=== PATIENT | male | born 1945 | race Caucasian/White ===

== ENCOUNTER 2024-03-14 13:47 | Outpatient (CLI) | payer OTHER, SELFPAY ==
--- NOTE | ~2024-03-14 | XR_ITS ---
EXAMINATION: XR lg joint inject/asp w image DATE: 03/14/2024 14:56 INDICATION: Left hip arthritis TECHNIQUE: A time-out was performed to verify the patient's name, date of , and procedure to b e performed. The procedure including the risks, benefits, and alternatives was discussed with the pat ient. Risks discussed included bleeding and infection. The patient understood the risks and agreed to proceed. The skin overlying the left hip joint was prepped and draped in usual sterile fashion. An esthetic was administered with 1% lidocaine subcutaneously. A 22 G needle was advanced under fluoros copic guidance into the joint. Injection of 1 mL of Omnipaque 240 confirmed intra-articular position of the needle. Subsequently, injectate consisting of 2 mL of a 2:1 mixture of 0.5% Marcaine: 80 mg/ mL Depo-Medrol for a total dose of 80 mg Depo-Medrol was instilled. Washout of contrast was seen conf irming intra-articular administration. The needle was removed and the entry site was cleaned and dres sed. There were no immediate complications. Fluoroscopy exposure time was 0.1 minutes. The total num raj of images was 2. Total DAP was 0.83 Gycm^2. FINDINGS: Real-time fluoroscopy demonstrates the needle in the left hip joint. IMPRESSION: 1. Successful left hip joint injection of local anesthetic and steroid. Reviewed, dictated and finalized at location A.
== END 2024-03-14 13:48 | disposition home or self-care (01) ==
LOC: ANHIMG 13:49
PROVIDERS: PCP Internal Medicine; Visit Provider Orthopaedic Surgery
DX: M16.12 Unilateral primary osteoarthritis, left hip (principal)
CPT/HCPCS: 20610; 77002; J1010

== ENCOUNTER 2024-04-25 14:00 | Outpatient (RCR) | payer OTHER, SELFPAY ==
--- NOTE | 2024-03-21 15:12 | PTOPEVAL1 ---
Assessment and note entered by Sebastian Orozco Evaluation Information Assessment Status Evaluation Diagnosis left hip pain, OA left hip Onset 01/01/24 Subjective Information Pt. reports that he began noticing hip pain in December. He states that pain was worsening initially, but he underwent an injection in the hip one week ago, that has helped to reduce his pain. He reports that pain is located in the area of the left groin. He reports that his activity level has been low due to pain and high temperatures. He states that initially he was having difficulty with getting up and down steps, but states that he has not had pain since the injection. He reports that he is very active with fishing, but states that he has not tried to fish trying to avoid increasing his hip pain. He reports that he has noticed some unsteadiness over the recent months, also making him reluctant to return to fishing. He recalls a couple episodes of falling over the past year. He reports that his goal for therapy is to improve his balance and improve his strength. Reported Pain Level Pain Score 1: Self Report Assessment PT Clinical Summary Pt. is a 78 year old male who enters the clinic due to left hip pain. He presents with impaired gait, impaired balance, impaired flexibility, impaired l.e. strength and pain on this date. Continued skilled PT is indicated in order to improve these areas to allow the pt. to be able to complete all IADL's with improved comfort and efficiency Plan of Care Interventions Electrical Stimulation,Gait Training,Hot Pack/Cold Pack,Manual Therapy,Neuro Re-education,Patient/ Caregiver Educati,Therapeutic Activities, Therapeutic Exercise PT Services Indicated Yes Treatment Frequency and 2x/week x 8 visits Duration These treatments will address the objective and functional deficits as defined above. The patient will be advanced safely and appropriately in order for the patient to progress towards his/her prior level of function. Additional exercises will be introduced and as well as a comprehensive home exercise program upon discharge, if needed, ?to ensure carryover of functional gains achieved in the clinic. This treatment plan has been reviewed and agreement upon by the patient.
--- NOTE | 2024-03-21 15:13 | OPREHPOC ---
Outpatient Therapy Plan of Care This is a Multidisciplinary Plan of Care that may contain components documented by all disciplines (PT, OT, and ST.) PT Problem 1 PT Problem #1 Knowledge Deficit PT Goal 1 Goal Pt. will be independent with a HEP addressing l.e. flexibility and strength Target Visit 2 PT Problem 2 PT Problem #2 Impaired Balance PT Goal 1 Goal Pt. will improve his Tinetti score to 27 or better indicating low to no fall risk Target Visit 8 PT Problem 3 PT Problem #3 Impaired Strength PT Goal 1 Goal Pt. will present with 4+/5 left hip abduction strength to improve gait mechanics Target Visit 8 PT Problem 4 PT Problem #4 Impaired Functional Mobil PT Goal 1 Goal Pt. will present with less than 15% limitation on the LEFS indicating significant functional improvement.
--- NOTE | 2024-04-25 15:10 | PTOPDC ---
Assessment and note entered by Sebastian Orozco Evaluation Information Assessment Status Evaluation Diagnosis left hip pain, OA left hip Onset 01/01/24 Subjective Information Pt. reports that he began noticing hip pain in December. He states that pain was worsening initially, but he underwent an injection in the hip one week ago, that has helped to reduce his pain. He reports that pain is located in the area of the left groin. He reports that his activity level has been low due to pain and high temperatures. He states that initially he was having difficulty with getting up and down steps, but states that he has not had pain since the injection. He reports that he is very active with fishing, but states that he has not tried to fish trying to avoid increasing his hip pain. He reports that he has noticed some unsteadiness over the recent months, also making him reluctant to return to fishing. He recalls a couple episodes of falling over the past year. He reports that his goal for therapy is to improve his balance and improve his strength. Reported Pain Level Pain Score 1: Self Report Assessment PT Clinical Summary Pt. demonstrates improve gait mechanics, improved strength and improved balance. Despite these improvements pain continues to have pain and note regression in his perception, as noted by his LEFS score. At this time pt. is encouraged to follow up with his doctor and will be discharged from our care. Plan of Care PT Services Indicated No
== END 2024-05-31 09:57 | disposition home or self-care (01) ==
LOC: ANHPT 14:00
PROVIDERS: PCP Internal Medicine; Visit Provider Orthopaedic Surgery
DX: M16.12 Unilateral primary osteoarthritis, left hip (principal)
CPT/HCPCS: 97110; 97112; 97161; 97530

== ENCOUNTER 2024-05-20 14:29 | Outpatient (CLI) | payer OTHER, SELFPAY ==
--- NOTE | 2024-05-20 14:48 | ECG_ITS ---
Test Date: 2024-05-20 14:57:32 Measurements Intervals [place] Rate: 65 P: 45 NH: 162 QRS: 36 QRSD: 98 T: 60 QT: 375 QTc: 390 Interpretive Statements SINUS RHYTHM No previous ECG available for comparison Electronically Signed On 05-21-2024 10:14:54 CDT by Wolf Jean M.D.
[2024-05-20 14:56] LABS: Add Urine Microscopic? NO; Appearance Urine Clear (Clear); Bilirubin Urine Negative (Negative); Blood Urine Negative (Negative); Color Urine Yellow (Yellow); Glucose Urine UA Negative (Negative); Ketones Urine Negative (Negative); Leukocyte Esterase Ur Negative LEU/UL (Negative); Nitrate Urine Negative (Negative); Protein Urine Negative (Negative); Specific Grav Ur 1.012 (1.001-1.035); Urobilinogen Urine 0.2 mg/dL (<2.0); pH Urine 5.5 (5.0-9.0)
[2024-05-20 15:12] LABS: Basophils Absolute Auto 0.1 K/mm3 (0.0-0.1); Basophils Percent Auto 0.7 % (0.2-1.2); Eosinophils Absolute Auto 0.1 K/mm3 (0-0.3); Eosinophils Percent Auto 0.6 % (0-4.4); Hematocrit 44.3 % (42.0-52.0); Hemoglobin 14.8 g/dL (14.0-18.0); Immature Granulocyte Absolute 0.03 K/mm3 (0.00-0.031); Immature Granulocyte Percent A 0.3 % (0-0.5); Lymphocytes Absolute Auto 1.61 K/mm3 (0.9-3.2); Lymphocytes Percent Auto 18.3 % (18.3-44.2); Mean Corpuscular HGB Conc 33.4 g/dl (32-36); Mean Corpuscular Volume 92.7 fl (80-100); Mean Platelet Volume 10.2 fl (7.4-10.4); Monocytes Absolute Auto 0.7 K/mm3 (0.1-0.6); Monocytes Percent Auto 7.5 % (2.6-8.5); Neutrophils Absolute Auto 6.4 K/mm3 (1.3-6.7); Neutrophils Percent Auto 72.6 % (45.5-73.1); Platelet Count Result 293 k/mm3 (150-375); Red Blood Count 4.78 M/mm3 (4.6-6.20); Red Cell Distribution Width 13.2 % (11.5-14.5); White Blood Count 8.8 K/mm3 (4.5-10.0)
[2024-05-20 15:27] LABS: Anion Gap 9 mmol/L (4-12); Blood Urea Nitrogen 13 mg/dL (9-20); Calcium 9.4 mg/dL (8.4-10.2); Carbon Dioxide 30 mmol/L (22-30); Chloride 96 mmol/L (98-107); Estimated Glomerular Filt Rate > 60; Glucose 98 mg/dL (65-110); Potassium 4.2 mmol/L (3.4-5.0); Sodium 135 mmol/L (137-145)
== END 2024-05-20 14:30 | disposition home or self-care (01) ==
LOC: ANHLAB 14:33
PROVIDERS: PCP Internal Medicine; Visit Provider Orthopaedic Surgery
DX: I73.9 Peripheral vascular disease, unspecified (principal); I70.90 Unspecified atherosclerosis; I10 Essential (primary) hypertension; R53.83 Other fatigue
CPT/HCPCS: 36415; 80048; 81003; 85025; 93005

== ENCOUNTER 2024-06-21 13:43 | Outpatient (CLI) | payer OTHER, SELFPAY ==
--- NOTE | ~2024-06-21 | XR_ITS ---
EXAMINATION: XR lg joint inject/asp w image DATE: 06/21/2024 14:25 INDICATION: Left hip arthritis. TECHNIQUE: A time-out was performed to verify the patient's name, date of , and procedure to b e performed. The procedure including the risks, benefits, and alternatives was discussed with the pat ient. Risks discussed included bleeding and infection. The patient understood the risks and agreed to proceed. The skin overlying the left hip joint was prepped and draped in usual sterile fashion. An esthetic was administered with 1% lidocaine subcutaneously. A 22 G needle was advanced under fluoros copic guidance into the joint. Subsequently, injectate consisting of 2 mL 0.5% bupivacaine and 1 mL 80 mg/mL Depo-Medrol was instilled. The needle was removed and the entry site was cleaned and dress ed. There were no immediate complications. Fluoroscopy exposure time was 0.1 minutes. The total numb er of images was 1. FINDINGS: Real-time fluoroscopy demonstrates the needle in the left hip joint. Patient's pain prior t o procedure:1/10. Patient's pain following the procedure: 0/10. IMPRESSION: 1. Fluoroscopy guided left hip joint injection of local anesthetic and steroid with decrease in the p atient's presenting pain. Reviewed, dictated and finalized at location A. IMPRESSION: 1. Fluoroscopy guided left hip joint injection of local anesthetic and steroid with decrease in the patient's presenting pain.
== END 2024-06-21 13:44 | disposition home or self-care (01) ==
LOC: ANHIMG 13:44
PROVIDERS: PCP Internal Medicine; Visit Provider Orthopaedic Surgery
DX: M16.12 Unilateral primary osteoarthritis, left hip (principal)
CPT/HCPCS: 20610; 77002; J1010

== ENCOUNTER 2024-07-29 09:47 | Outpatient (CLI) | payer OTHER, SELFPAY ==
--- NOTE | ~2024-07-29 | US_ITS ---
EXAMINATION: US art doppler ha JONES DATE: 07/29/2024 11:30 INDICATION: Peripheral vascular disease TECHNIQUE: Segmental pressures and plethysmographic and Doppler waveforms of the brachial and lower e xtremity arteries were obtained. COMPARISON: None. FINDINGS: Right and left brachial artery pressures of 136 mm Hg and 139 mm Hg, respectively, are concordant (no rmal difference <= 30 mmHg). The right and left high-thigh pressure indices are 1.13 and 0.99, respec tively (normal > 1.2). The right ankle-brachial index (YARIEL) is unable to be obtained due to inability to occlude either the dorsalis pedis or posterior tibial artery at the right ankle (normal >= 0.9-1). The right great toe-b rachial index (TBI) is 0.53 (normal >= 0.6-0.8). The right lower extremity segmental pressure gradien ts are normal above the ankle (normal gradients <= 20-30 mmHg between adjacent levels on the same leg or the same levels on the two legs). Arterial waveforms are biphasic at the right common femoral, chavarria perficial femoral, popliteal and posterior tibial arteries and monophasic at the right dorsalis pedis artery, all with brisk systolic upstrokes. The left YARIEL is 0.96. The left TBI is 0.44. The left lower extremity segmental pressure gradients are significantly increased between the left [id number] popliteal artery and the left dorsalis pedis artery. Arterial waveforms are biphasic with brisk systolic upstrokes at the left common femoral, chavarria perficial femoral and popliteal arteries and monophasic with brisk systolic upstrokes at the left pos terior tibial and dorsalis pedis arteries. IMPRESSION: 1. Mild bilateral lower limb arterial occlusive disease with mildly decreased bilateral high thigh pr essure indices, bilateral TBIs and mildly decreased left TBI. Right TBI is unable to be obtained due to inability to occlude the vessels at the right ankle. Reviewed, dictated and finalized at location A. IMPRESSION: 1. Mild bilateral lower limb arterial occlusive disease with mildly decreased b ilateral high thigh pressure indices, bilateral TBIs and mildly decreased left TBI. Right TBI is unable to be obtained due to inability to occlude the vessels at the right ankle.
== END 2024-07-29 09:48 | disposition home or self-care (01) ==
LOC: ANHIMG 09:49
PROVIDERS: PCP Internal Medicine; Visit Provider Orthopaedic Surgery
DX: I73.9 Peripheral vascular disease, unspecified (principal)
CPT/HCPCS: 93923

== ENCOUNTER 2024-08-28 00:53 | Emergency (ER) | payer OTHER, SELFPAY ==
--- NOTE | ~2024-08-28 | CT_ITS ---
EXAMINATION: CT chest abdomen pelvis wo con DATE: 08/28/2024 02:40 INDICATION: Right chest and flank trauma. TECHNIQUE: Computed tomography (CT) of the chest, abdomen, and pelvis was performed without intraveno us contrast. Automated exposure control and iterative reconstruction technique were employed. The dos e-length product was 417.96 mGy-cm. COMPARISON: None FINDINGS: CHEST CT: There is mild atelectasis in the lungs bilaterally. Calcified right lung nodules and calcified right hilar lymph nodes are consistent with old granulomatous disease. No pleural effusion. The heart size is normal. There are coronary artery calcifications. No pericardial effusion. There are fractures of the right eighth-11th ribs. There is severe cervical spondylosis and mild thoracic spondylosis. ABDOMEN/PELVIS CT: The liver is normal. There are gallstones in the gallbladder, which is normal in size. Calcifications in the spleen are consistent with old granulomatous disease. The pancreas, adrenal glands, and left kidney are normal. There is a 2 mm stone in right kidney. There are no dilated loops of bowel. The ap pendix is normal. There are no pathologically enlarged lymph nodes. There is no free intraperitoneal fluid. There are fractures of the right L1, L2, and L3 transverse processes. There is a hemangioma in L1 vertebral body. There is moderate lumbar spondylosis. IMPRESSION: 1. Fractures of the right eighth-11th ribs. I discussed this result with Dr. Dhillon. 2. Fractures of the right L1-L3 transverse processes. Reviewed, dictated and finalized at location A. 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 Fractures of the right eighth-11th ribs. I discussed this result with Dr. Zayda bell. 2. Fractures of the right L1-L3 transverse processes.
[2024-08-28 00:56] VITALS: BP 142/81; PULSE 78; RESP 19; TEMP 36.5; O2SAT 100
[2024-08-28] MEDS: HYDROcodone/acetaminophen (*CRX) 5-325 MG TABLET 1 TAB PO ×2 (02:16→04:39)
--- NOTE | 2024-08-28 03:17 | ED_ITS ---
HPI - General Adult General Chief complaint: Back Pain/Injury Stated complaint: fell down bleachers and hurt back Time Seen by Provider: 08/28/24 01:47 History of Present Illness HPI narrative: Patient is a 79-year-old gentleman who presents emergency department with chief complaint of right flank and back pain. Patient reports that he was walking down some bleachers lost his balance and fell backward striking his right flank and right lower chest on the bleachers. The patient reports that he has pain with movement pain with deep inspiration. The patient denies loss of consciousness denies being on blood thinners Related Data Home Medications Medication Instructions Recorded Confirmed atorvastatin 20 mg tablet 20 mg PO DAILY 03/08/24 05/20/24 finasteride PO 03/08/24 05/20/24 lisinopril PO 03/08/24 05/20/24 Allergies Allergy/AdvReac Type Severity Reaction Status Date / Time No Known Allergies Allergy Verified 08/28/24 00:53 Review of Systems Review of Systems: A 10 system review of systems was completed on the patient and is negative except for what is stated in the HPI. Nursing and ancillary documentation was reviewed. 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 HEAD: Normocephalic, atraumatic. EYES: PERRLA and EOMI. ENT: Nares clear, no rhinorrhea or epistaxis. Mucous membranes moist. NECK: Supple. CHEST: Clear to auscultation. No respiratory distress. Tenderness to palpation in the posterior chest on the right no crepitance no subcu emphysema HEART: Regular rate and rhythm. No murmur heard. Normal peripheral pulses. ABDOMEN: Soft, nontender, nondistended, normal active bowel sounds. Tenderness to palpation of the right flank EXTREMITIES: Normal range of motion. No edema. SKIN: Warm, dry, no rash. NEURO: No focal deficits. Alert and oriented x3. PSYCH: Normal mood and affect. Course Vital Signs Vital signs: Vital Signs Temperature 36.5 C 08/28/24 00:56 Pulse Rate 78 08/28/24 00:56 Respiratory Rate 19 08/28/24 00:56 Blood Pressure 142/81 H 08/28/24 00:56 Pulse Oximetry 100 08/28/24 00:56 Oxygen Delivery Room Air 08/28/24 00:56 Temperature 36.5 C 08/28/24 00:56 Pulse Rate 78 08/28/24 00:56 Respiratory Rate 19 08/28/24 00:56 Blood Pressure 142/81 H 08/28/24 00:56 Pulse Oximetry 100 08/28/24 00:56 Oxygen Delivery Room Air 08/28/24 00:56 Medical Decision Making MDM Narrative Medical decision making narrative: Differential diagnosis includes rib fractures, pneumothorax, pulmonary contusion, intra-abdominal injury, lumbar fracture Urinalysis showed no evidence of red blood cells in the urine CT scan of the chest abdomen pelvis showed transverse process fractures that are nondisplaced L1, L2 and L3 The patient is neurologically intact Vital Signs Vital Signs: Vital Signs Temperature 36.5 C 08/28/24 00:56 Pulse Rate 78 08/28/24 00:56 Respiratory Rate 19 08/28/24 00:56 Blood Pressure 142/81 H 08/28/24 00:56 Pulse Oximetry 100 08/28/24 00:56 Oxygen Delivery Room Air 08/28/24 00:56 Temperature 36.5 C 08/28/24 00:56 Pulse Rate 78 08/28/24 00:56 Respiratory Rate 19 08/28/24 00:56 Blood Pressure 142/81 H 08/28/24 00:56 Pulse Oximetry 100 08/28/24 00:56 Oxygen Delivery Room Air 08/28/24 00:56 Lab Data Labs: Lab Results 08/28/24 Range/Units 02:47 Urine Color Dark yellow (Yellow) Urine Appearance Clear (Clear) Urine pH 5.5 (5.0-9.0) Ur Specific [place] 1.022 (1.001-1.035) Urine Protein Negative (Negative) mg/dL Urine Glucose (UA) Negative (Negative) mg/dL Urine Ketones Trace H (Negative) mg/dL Ur Blood (Man) Negative (Negative) Urine Nitrate Negative (Negative) Urine Bilirubin Negative (Negative) Urine Urobilinogen 1.0 (<2.0) mg/dL Leukocyte Esterase Rfl Negative (Negative) ORION/UL Discharge Plan Discharge Clinical Impression: Fracture of multiple transverse processes Fracture of transverse process of lumbar vertebra Qualifiers: Encounter type: initial encounter Fracture type: closed Qualified Code(s): S32.009A - Unspecified fracture of unspecified lumbar vertebra, initial encounter for closed fracture Patient Disposition: Home, Self-Care Condition: Stable Instructions: Antibiotic Form, Transverse Process Fracture (ED) Prescriptions: New hydrocodone-acetaminophen 5-325 mg tablet 1 tablet PO Q6H PRN (Reason: pain) 3 Days Qty: 12 0RF ibuprofen 600 mg tablet 600 mg PO TID PRN (Reason: pain) Qty: 30 0RF No Action lisinopril PO atorvastatin 20 mg tablet 20 mg PO DAILY finasteride PO Follow-up/Referrals: Mariama Ellis MD [Physician] - [facility],Jesus Ruano MD [Primary Care Provider] - Time of Disposition: 04:24
[2024-08-28 03:19] LABS: Add Urine Microscopic? YES; Appearance Urine Clear (Clear); Bilirubin Urine Negative (Negative); Blood Urine Negative (Negative); Color Urine Dark Yellow (Yellow); Glucose Urine UA Negative (Negative); Ketones Urine Trace mg/dL (Negative); Leukocyte Esterase Ur Negative LEU/UL (Negative); Nitrate Urine Negative (Negative); Protein Urine Negative (Negative); Specific Grav Ur 1.022 (1.001-1.035); pH Urine 5.5 (5.0-9.0)
[2024-08-28] MEDS: IBUPROFEN 600 MG TABLET PO (04:39)
[2024-08-28 04:46] VITALS: BP 145/74; PULSE 66; RESP 18; O2SAT 99
== END 2024-08-28 04:47 | disposition home or self-care (01) ==
PROVIDERS: Emergency Provider Emergency Medicine; PCP Internal Medicine
DX: S32.018A Other fracture of first lumbar vertebra, initial encounter for closed fracture (principal); S32.028A Other fracture of second lumbar vertebra, initial encounter for closed fracture; S32.038A Other fracture of third lumbar vertebra, initial encounter for closed fracture; S22.41XA Multiple fractures of ribs, right side, initial encounter for closed fracture; W18.39XA Other fall on same level, initial encounter
CPT/HCPCS: 71250; 74176; 81001; 99284; A9270

== ENCOUNTER 2024-08-28 09:52 | Emergency (ER) | payer OTHER, SELFPAY ==
[2024-08-28 10:02] VITALS: BP 146/83; PULSE 92; RESP 16; TEMP 37; O2SAT 99
--- NOTE | 2024-08-28 10:29 | ED_ITS ---
HPI - Recheck/Abnormal Lab/Rx General Chief Complaint: Recheck/Abnormal Lab/Rx Stated Complaint: call back Time Seen by Provider: 08/28/24 10:29 Source: patient Mode of arrival: ambulatory Limitations: no limitations History of Present Illness [facility] narrative: This is a 79-year-old male who presents to the ED for chief complaint of right flank/rib pain and lower back pain after a fall it occurred yesterday evening. Patient was seen in our facility last night and was discharged after a negative read from the overnight radiology service. In-house radiologist read the scans and found multiple rib fractures and multiple transverse process fractures of the lumbar spine. Patient was called back into the ED for further evaluation. He states he still having pain on that right side but no respiratory complaints. Denies numbness, weakness, bowel or bladder dysfunction. Denies any further injury. He did not have a head injury or neck pain. Related Data Home Medications Medication Instructions Recorded Confirmed atorvastatin 20 mg tablet 20 mg PO DAILY 03/08/24 05/20/24 finasteride PO 03/08/24 05/20/24 lisinopril PO 03/08/24 05/20/24 Allergies Allergy/AdvReac Type Severity Reaction Status Date / Time No Known Allergies Allergy Verified 08/28/24 00:53 Review of Systems Review of Systems: All systems as dictated in [facility] Social History Social History Smoking status: Never smoker Alcohol intake: current Drinks per week: 5 Substance use type: does not use Living arrangements: alone Occupation/Education: retired 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 HEAD: Normocephalic, atraumatic. EYES: PERRLA and EOMI. ENT: Nares clear, no rhinorrhea or epistaxis. Mucous membranes moist. Oropharynx without tonsillar hypertrophy exudate or other lesions. NECK: Supple. No adenopathy or masses. CHEST: Right posterior rib tenderness. No respiratory distress. Clear to auscultation. No wheezes rales or rhonchi HEART: Regular rate and rhythm. No murmur heard. Normal peripheral pulses. ABDOMEN: Soft, nontender, nondistended, normal active bowel sounds. MSK: Normal range of motion. No edema. SKIN: Warm, dry, no rash. NEURO: Alert and oriented x4. No focal deficits. PSYCH: Normal mood and affect. Course Vital Signs Vital signs: Vital Signs Temperature 98.6 F 08/28/24 10:02 Pulse Rate 92 08/28/24 10:02 Respiratory Rate 16 08/28/24 10:02 Blood Pressure 146/83 H 08/28/24 10:02 Pulse Oximetry 99 08/28/24 10:02 Temperature 98.6 F 08/28/24 10:02 Pulse Rate 84 08/28/24 10:57 Respiratory Rate 17 08/28/24 11:13 Blood Pressure 139/92 H 08/28/24 10:57 Pulse Oximetry 97 08/28/24 10:57 MDM - Recheck/Abnormal Lab/Rx MDM Narrative Medical decision making narrative: This is a 79-year-old male who presents to the ED for chief complaint of right sided rib and flank pain after a fall last night. Vitals are normal.. Exam shows tenderness to the right posterior ribs and low back. No respiratory distr ess. No neurologic deficits. Lab work is unremarkable. CT chest abdomen pelvis: IMPRESSION: 1. Fractures of the right eighth-11th ribs. I discussed this result with Dr. Dhillon. 2. Fractures of the right L1-L3 transverse processes. Discussed the case with practice assistant transfer center who related to their ED, Dr. Casillas who will accept the patient for trauma. Patient is understanding and agreeable with the plan for transfer. He will be transferred in stable condition. Lab Data 08/28/24 11:11 08/28/24 11:11 Labs: Lab Results 08/28/24 Range/Units 11:11 WBC 9.1 (4.5-10.0) K/mm3 RBC 4.36 L (4.6-6.20) M/mm3 Hgb 13.4 L (14.0-18.0) g/dL Hct 39.8 L (42.0-52.0) % MCV 91.3 (80-100) fl MCH 30.7 (26-34) pg MCHC 33.7 (32-36) g/dl RDW 13.0 (11.5-14.5) % Plt Count 248 (150-375) k/mm3 MPV 10.0 (7.4-10.4) fl Immature Gran % (Auto) 0.4 (0-0.5) % Neut % (Auto) 68.5 (45.5-73.1) % Lymph % (Auto) 21.6 (18.3-44.2) % [place] % (Auto) 8.3 (2.6-8.5) % Eos % (Auto) 0.9 (0-4.4) % Baso % (Auto) 0.3 (0.2-1.2) % Lymph # (Auto) 1.97 (0.9-3.2) K/mm3 [place] # (Auto) 0.8 H (0.1-0.6) K/mm3 Eos # (Auto) 0.1 (0-0.3) K/mm3 Baso # (Auto) 0.0 (0.0-0.1) K/mm3 Abs Immat Gran (auto) 0.04 H (0.00-0.031) K/mm3 Absolute Neuts (auto) 6.3 (1.3-6.7) K/mm3 Absolute Nucleated RBC 0.000 (0.0-0.012) K/mm3 Nucleated RBC % 0.0 (0.0-0.2) % PT 15.0 H (11.1-14.7) Seconds INR 1.2 APTT 29.7 (22.3-36.8) Seconds Sodium 133 L (137-145) mmol/L Potassium 4.1 (3.4-5.0) mmol/L Chloride 100 (98-107) mmol/L Carbon Dioxide 30 (22-30) mmol/L Anion Gap 3 L (4-12) mmol/L BUN 23 H D (9-20) mg/dL Creatinine 1.10 (0.7-1.3) mg/dL Estim Creat Clear Calc 45 ml/min Estimated GFR > 60 (59 - ) Glucose 103 (65-110) mg/dL Calcium 8.5 (8.4-10.2) mg/dL Total Bilirubin 0.8 (0.2-1.3) mg/dL AST 27 (17-59) U/L ALT 40 (6-50) U/L Alkaline Phosphatase 105 (38-126) U/L Total Protein 6.0 L (6.3-8.2) g/dL Albumin 3.8 (3.5-5.1) g/dL Discharge Plan Discharge Clinical Impression: Fracture of multiple transverse processes, Multiple fractures of ribs Patient Disposition: Acute Care Hospital Condition: Stable Prescriptions: No Action hydrocodone-acetaminophen 5-325 mg tablet 1 tablet PO Q6H PRN (Reason: pain) 3 Days Qty: 12 0RF ibuprofen 600 mg tablet 600 mg PO TID PRN (Reason: pain) Qty: 30 0RF lisinopril PO atorvastatin 20 mg tablet 20 mg PO DAILY finasteride PO Follow-up/Referrals: Arun,Jesus Ruano MD [Primary Care Provider] -
[2024-08-28 10:57] VITALS: BP 139/92; PULSE 84; RESP 16; O2SAT 97
[2024-08-28 11:13] VITALS: RESP 17
[2024-08-28 11:24] LABS: Basophils Percent Auto 0.3 % (0.2-1.2); Eosinophils Absolute Auto 0.1 K/mm3 (0-0.3); Eosinophils Percent Auto 0.9 % (0-4.4); Hematocrit 39.8 % (42.0-52.0); Hemoglobin 13.4 g/dL (14.0-18.0); Immature Granulocyte Absolute 0.04 K/mm3 (0.00-0.031); Immature Granulocyte Percent A 0.4 % (0-0.5); Lymphocytes Absolute Auto 1.97 K/mm3 (0.9-3.2); Lymphocytes Percent Auto 21.6 % (18.3-44.2); Mean Corpuscular HGB Conc 33.7 g/dl (32-36); Mean Corpuscular Hemoglobin 30.7 pg (26-34); Mean Corpuscular Volume 91.3 fl (80-100); Monocytes Absolute Auto 0.8 K/mm3 (0.1-0.6); Monocytes Percent Auto 8.3 % (2.6-8.5); Neutrophils Absolute Auto 6.3 K/mm3 (1.3-6.7); Neutrophils Percent Auto 68.5 % (45.5-73.1); Platelet Count Result 248 k/mm3 (150-375); Red Blood Count 4.36 M/mm3 (4.6-6.20); White Blood Count 9.1 K/mm3 (4.5-10.0)
[2024-08-28 11:34] LABS: Alanine Aminotransferase 40 U/L (6-50); Albumin Level 3.8 g/dL (3.5-5.1); Alkaline Phosphatase 105 U/L (38-126); Anion Gap 3 mmol/L (4-12); Aspartate Amino Transferase 27 U/L (17-59); Bilirubin,Total 0.8 mg/dL (0.2-1.3); Blood Urea Nitrogen 23 mg/dL (9-20); Calcium 8.5 mg/dL (8.4-10.2); Carbon Dioxide 30 mmol/L (22-30); Chloride 100 mmol/L (98-107); Estimated CRCL calculation 45 ml/min; Estimated Glomerular Filt Rate > 60; Glucose 103 mg/dL (65-110); Potassium 4.1 mmol/L (3.4-5.0); Sodium 133 mmol/L (137-145)
[2024-08-28 11:35] LABS: INR 1.2
[2024-08-28 11:36] LABS: Partial Thromboplastin Time 29.7 Seconds (22.3-36.8)
== END 2024-08-28 11:47 | disposition short-term general hospital (02) ==
LOC: ANHED 10:48
PROVIDERS: Emergency Provider Physician Assistant; PCP Internal Medicine
DX: S22.41XA Multiple fractures of ribs, right side, initial encounter for closed fracture (principal); S32.018A Other fracture of first lumbar vertebra, initial encounter for closed fracture; S32.028A Other fracture of second lumbar vertebra, initial encounter for closed fracture; S32.038A Other fracture of third lumbar vertebra, initial encounter for closed fracture; W19.XXXA Unspecified fall, initial encounter
CPT/HCPCS: 36415; 80053; 85025; 85610; 85730; 99199

== ENCOUNTER 2024-10-23 14:00 | Outpatient (CLI) | payer OTHER, SELFPAY ==
--- NOTE | ~2024-10-23 | XR_ITS ---
EXAMINATION: XR lg joint inject/asp w image DATE: 10/23/2024 14:54 INDICATION: Left hip arthritis TECHNIQUE: A time-out was performed to verify the patient's name, date of , and procedure to b e performed. The procedure including the risks, benefits, and alternatives was discussed with the pat ient. Risks discussed included bleeding and infection. The patient understood the risks and agreed to proceed. The skin overlying the left hip joint was prepped and draped in usual sterile fashion. An esthetic was administered with 1% lidocaine subcutaneously. A 22 G needle was advanced under fluoros copic guidance into the joint. Injection of 1 mL of Omnipaque 240 confirmed intra-articular position of the needle. Subsequently, injectate consisting of 3 mL of a 2:1 mixture of 0.5% bupivacaine: 80 mg/mL Depo-Medrol for a total dosage of 80 mg Depo-Medrol was instilled. Washout of contrast was seen confirming intra-articular administration. The needle was removed and the entry site was cleaned and dressed. There were no immediate complications. Fluoroscopy exposure time was 0.1 minutes. The tota l number of images was 3. Total DAP was 0.6 Gycm^2. FINDINGS: Real-time fluoroscopy demonstrates the needle in the left hip joint. Patient's pain prior t o procedure:1/10. Patient's pain following the procedure: 0/10. IMPRESSION: 1. Successful left hip joint injection of local anesthetic and steroid with decrease in the patient's presenting pain. Reviewed, dictated and finalized at location A. GE MANAGER IMPRESSION: 1. Successful left hip joint injection of local anesthetic and steroid with dec rease in the patient's presenting pain.
--- OUTSIDE RECORDS SUMMARY | 2024-10-25 01:41 | XMS_ITS | Data Portability ---
Author Organization [facility], Main Office Address [address] [place] [address] Care Team Providers Care Drink Mixer Name Role Phone ZOYA BYRNES Primary Care Provider Assessment No assessment recorded. Plan of Treatment Reminders Order Date Submit Date Provider Last Modified By Organization Details Last Modified Time Details Appointments None record ed. Lab None record ed. Referral None record ed. Procedures None record ed. Surgeries None record ed. Imaging None record ed. Medication Orders None record ed. Patient TargetsNo targets recorded. Patient Instructions Encounter Date Encounter Id Patient Instructions Last Modified By Organization Details Last Modified Time 12/26/2022 [id number] this patient believes that he has mupirocin at home and will use it whenever necessary. [email or web address] Not available 12/26/2022 16:06:44 Reason for Referral None Reported. Problems Name Problem SNOMED Code Status Onset Date Resolution Date Notes Provider Name and Address Organization Details Recorded Time Folliculitis [id number] Active 023 Jama Wheeler MD [address] [facility], [place], [address] [place] [address] [employer] 16:06:32 Problem Notes None recorded. Medical Equipment None Reported. Allergies No known drug allergies Medications Name Sig Start Date Stop Date Status Note LastModified by Organization Details LastModified Time atorvastati n 20 mg tablet Take 1 tablet every day by oral route. active Not Available Not Available No t Available betamethaso ne dipropionat e 0.05 % topical cream APPLY TOPICALLY TWICE DAILY TO AFFECTED AREA DIRECTED active Not Available Not Available No t Available mupirocin 2 % topical ointment APPLY 1 APPLICATI ON BY TOPICAL ROUTE TWICE DAILY active Not Available Not Available No t Available lisinopril 10 mg-hydrochl orothiazide 12.5 mg tablet Take 1 tablet every day by oral route. active Not Available Not Available No t Available finasteride 5 mg tablet TAKE 1 TABLET BY MOUTH EVERY OTHER DAY active Not Available Not Available No t Available amoxicillin 875 mg-charisma m clavulanate 125 mg tablet TAKE 1 TABLET BY MOUTH EVERY 12 HOURS FOR 10 DAYS 12/26 completed Not Available Not Available Not Available finasteride active Not Available Not A vailable Not Available Vitamin D3 active Not Available Not Av ailable Not Available Jublia 10 % topical solution with applicator active Not Available Not Available N ot Available Vitals Date Recorded Body weight Body temperature Body mass index (BMI) Body height Provider Name and Address Organization Details Last Updated DateTime 12/26/2022 59636.99 g 97.4 [degF] 25.6 kg/m2 170.18 cm Dee Howard RN [facility] [employer] 12/26/2022 15:44:31 Social History Question Answer Notes LastModified by Organizat ion Details LastModified Time Tobacco Smoking Status Never Smoker Dee Howard RN null, [facility] [employer] 12/22/2022 15:37:02 What Is Your Level Of Alcohol Consumption? Occasional [email or web address] Information not available 12/22/2022 Sex: Unknown Functional Status None recorded. Mental Status None recorded. Family History Relationship Description Onset Age of this Age Resolved Age Notes LastModified by Organization Details LastModified Time Father No current problems or disability [email or web address] Not available 12/22 15:36:40 Mother No current problems or disability [email or web address] Not available 12/22 15:36:40 Medical History Condition Response MRSA N ALLERGIES/HAYFEVER N BACK INJECTIONS N LUNG DISEASE/DISORDER N ESRD N HISTORY OF DRUG ABUSE N INSOMNIA N RADIATION / CHEMOTHERAPY N COPD N HIGH CHOLESTEROL / HYPERLIPIDEMIA N HYPERTHYROIDISM N PVD N BLOOD DISEASES N EAR OR HEARING PROBLEMS N HYPOTHYROIDISM N SHINGLES N DEPRESSION (INCLUDING POST ) N BACK / NECK PROBLEMS N HAVE YOU BEEN HOSPITALIZED OR SEEN IN [facility] IN THE PAST YEAR ? N FAILED BACK SYNDROME N STROKE/TIA N POLYCYSTIC OVARIES N OBESITY N ANEURYSM N HISTORY WITH COMPLICATIONS WITH ANESTHES IA ? N Do you have Advance directive? N USE OF BLOOD THINNERS N NO SIGNIFICANT PAST MEDICAL HISTORY N DIABETES, TYPE N VON WILLIBRAND'S DISEASE N PARATHYROID DISEASE N ENT N SEASONAL ALLERGIES N HEARTBURN / REFLUX N POST LAMINECTOMY SYNDROME N HEPATITIS / LIVER DISEASE N SLEEP DISORDER N ARTERIAL INSUFFICIENCY N SEIZURES/EPILEPSY N HEADACHES/MIGRAINES N CHF N PACEMAKER N DIZZINESS N HEART DISEASE/HEART PROBLEMS N AIDS/HIV N NEUROPSYCHOLOGICAL N HYPERTENSION Y CANCER: SPECIFY N TOURETTE'S N BLOOD TRANSFUSION N ANESTHESIA COMPLICATIONS N ANEMIA/BLOOD DISORDER N CHRONIC EAR INFECTIONS N ATRIAL FIBRILLATION N AUTOIMMUNE DISEASE N TUBERCULOSIS N Past Encounters Encounter ID Performer Location Encounter Start Date Encounter Closed Date Diagnosis/Indication Diagnosis SNOMED-CT Code Diagnosis ICD10 Code Diagnosis Note [id number] Jama Wheeler MD [facility] [address] [place] [address] 12/26/2022 15:35:55 12/26/2022 16:08:14 Folliculitis 21861704 L73.9 Health Concerns Section Related Observation LastModified by Organization Detai ls LastModified Time None Recorded Concern Status LastModified by Organization Details LastModified Time None Recorded Advance Directives Directive None Recorded Payers Encounter Date Sequence Insurance Name Policy Number Policy Mendiola Covered Member ID Mendiola Member ID Guarantor Name 12/26/2022 1 [employer] OPEN [employer]ESS [id number] Nas Schroeder [id number] OI Nas Mockjuan a Notes Date Note Type Note Provider Name and Address Organization Details Recorded Time 12/26/2022 text/html this patient had a cold and a sinus infection and developed a left vestibular fissure. This was painful and he was seen in the emergency room was given an appointment and this did resolve. This likely was pierre Wheeler MD [address] [place] [address], [place], [address], [facility] [employer] 12/26/2022 16:07:04
--- OUTSIDE RECORDS SUMMARY | 2024-10-25 01:41 | XMS_ITS | Clinical Summary ---
Author Organization [facility] Address [address] [place] [address] Care Team Providers Care Developmental Psychologist Name Role Phone Jesus Dias MD Primary Care Provider [phone] Hailey ESTEVES MD, Cristiano Unavailable [phone] Source Comments [facility],non-owned Affiliates and Associated Physician Practices is amultiple site organization consisting of ambulatory clinics and hospital sitesin [place], [place], [place] and [place]. This disclosure is being madepursuant to the Care Everywhere program and may not contain all information available regarding this patient. Last updated 18.[facility] Allergies No known active allergies Medications * Be aware that medications may not be up to date on this document. Alwaysverify current medications with the patient. Medication Sig Dispensed Refills Start Date End Date Status finasteride (Proscar) 5 MG tablet Take 1 (one) tablet by mouth every 2 days Active atorvastatin (Lipitor) 20 MG tablet Take 1 (one) tablet by mouth once daily Active lisinopril-hydroCHLOR Othiazide (Prinzide; Zestoretic) 10-12.5 MG tablet Take 1 (one) tablet by mouth once daily Active fluticasone propionate (Flonase) 50 MCG/ACT nasal spray [facility] 2 (two) sprays into each nostril once daily 1 Each 08/29/2024 Active loratadine (Claritin) 10 MG tablet Take 1 (one) tablet by mouth once daily 30 tablet 08/29/2024 Active vitamin D3 (Cholecalciferol) 25 MCG (1000 UNITS) tablet Take 1 (one) tablet by mouth once daily 30 tablet 08/29/2024 Active oxyCODONE, immediate release, (Roxicodone) 5 MG tabletIndications:Fal l, initial encounter Take 0.5 (one-half) tablet by mouth every 6 hours as needed for Pain 10 tablet 08/29/2024 Active Active Problems Problem Noted Date Diagnosed Date Fx dorsal vertebra-closed 08/28/2024 Multiple closed fractures of ribs of right side 08/28/2024 Fall, initial encounter 08/28/2024 Other closed fracture of tho racic vertebra, unspecified thoracic vertebral level, initial encounter 08/28/2024 Calculus of gallbladder with out cholecystitis without obstruction 08/28/2024 Closed fracture of multiple ribs of right side, initial encounter 08/28/2024 Encounters Date Type Department Care Team Description 10/14/2024 2:29 PM ADVENTURE EDUCATION TEACHER - 10/14/2024 11:59 PM ADVENTURE EDUCATION TEACHER Hospital Encounter [facility] [address] [place] [address] Julia Amezquita PA-C Discharge Disposition: Home or Self Care 10/14/2024 2:00 PM ADVENTURE EDUCATION TEACHER Office Visit [facility] [address] [place] [phone] Julia Amezquita PA-C Closed fracture of transverse process of lumbar vertebra with routine healing, subsequent encounter (Primary Dx) 10/14/2024 Travel 10/03/2024 Orders Only [facility] [address] [place] [phone] Jluia Amezquita PA-C Low back pain, unspecified back pain laterality, unspecified chronicity, unspecified whether sciatica present 09/12/2024 Telephone [facility] [address] [place] [phone] Agatha Mayo RN Question 08/28/2024 12:10 PM ADVENTURE EDUCATION TEACHER - 08/29/2024 3:52 PM ADVENTURE EDUCATION TEACHER Emergency [facility] [address] [place] [phone] James Casillas MD Yogendran, MD Mary Lou Dunlap John T, MD Emergency Medicine Discharge Disposition: Home or Self Care 08/28/2024 Travel from Last 3 Months Social History Tobacco Use Types Packs/Day Years Used Date Smoking Tobacco: Never Smokeless Tobacco: Never Tobacco Cessation:Counseling Given: Not Answered Alcohol Use Standard Drinks/Week Comments Yes 0 (1 standard drink = 0.6 oz pur e alcohol) Sex and Gender Information Value Date Recorded Sex Assigned at Not on file Gender Identity Not on file Sexual Orientation Not on file Last Filed Vital Signs Vital Sign Reading Time Taken Comments Blood Pressure 137/62 08/29/2024 11:31 AM ADVENTURE EDUCATION TEACHER Pulse 73 08/29/2024 11:31 AM ADVENTURE EDUCATION TEACHER Temperature 36.4 ??C (97.5 ??F) 08/29/2024 11:[address] Respiratory Rate 20 08/29/2024 11:31 AM ADVENTURE EDUCATION TEACHER Oxygen Saturation 95% 08/29/2024 11:31 AM ADVENTURE EDUCATION TEACHER Inhaled Oxygen Concentration - - Weight 71.7 kg (158 lb) 10/14/2024 2:46 PM ADVENTURE EDUCATION TEACHER Height 180.3 cm (5' 11 ) 08/28/2024 12:13 PM ADVENTURE EDUCATION TEACHER Body Mass Index 22.04 08/28/2024 12:13 PM ADVENTURE EDUCATION TEACHER Plan of Treatment Health Maintenance Due Date Last Done Comments DTAP/TDAP/TD VACCINES (1 - Tdap) 1964 PNEUMOCOCCAL VACCINE 50+ (1 of 1 - PCV) 1995 ZOSTER VACCINE (1 of 2) 1995 Respiratory Syncytial Virus (RSV) Vaccine Pt: or over 60 yrs (1 - 1-dose 75+ series) 2020 DEPRESSION SCREENING 10/02/2024 COVID-19 VACCINE Completed 07/17/2024, , 07/18/2023, Additional history exists INFLUENZA VACCINE Completed 07/17/2024, , 07/26/2022, Additional history exists HEPATITIS B VACCINE Aged Out No longe r eligible based on patient's age to complete this topic HIB VACCINE Aged Out No longer eligi ble based on patient's age to complete this topic HPV VACCINE Aged Out No longer eligi ble based on patient's age to complete this topic MENINGOCOCCAL (Group B) VACCINE Aged Out No longer eligible based on patient's age to complete this topic MENINGOCOCCAL VACCINE Aged Out No jonny ata eligible based on patient's age to complete this topic Procedures Procedure Name Priority Date/Time Associated Diagnosis Comments XR LUMBAR SPINE 2 OR 3VW Routine 10/14/2024 2:43 PM ADVENTURE EDUCATION TEACHER Low back pain, unspecified back pain laterality, unspecified chronicity, unspecified whether sciatica present PHOSPHORUS BLOOD Routine 08/29/2024 4:38 AM ADVENTURE EDUCATION TEACHER MAGNESIUM BLOOD Routine 08/29/2024 4:38 AM ADVENTURE EDUCATION TEACHER BASIC METABOLIC PANEL (CALCIUM TOTAL) Routine 08/29/2024 4:38 AM ADVENTURE EDUCATION TEACHER CBC W/O DIFFERENTIAL Routine 08/29/2024 4:38 AM ADVENTURE EDUCATION TEACHER XR CHEST 1VW PORTABLE Routine 08/29/2024 4:14 AM ADVENTURE EDUCATION TEACHER Fall, initial encounter SARS-COV-2 (COVID-19) RAPID STAT 08/28/2024 4:00 PM ADVENTURE EDUCATION TEACHER Fall, initial encounter PT EVAL AND TREAT Routine 08/28/2024 3:1 9 PM ADVENTURE EDUCATION TEACHER OT EVAL AND TREAT Routine 08/28/2024 3:1 9 PM ADVENTURE EDUCATION TEACHER XR LUMBAR SPINE 2 OR 3VW STAT 08/28/2024 1:09 PM ADVENTURE EDUCATION TEACHER Fall, initial encounter URINE DRUG SCREEN IMMUNOASSAY STAT 08/28/2024 12:[address] [address] LUMBAR SPINE WO CONTRAST STAT 08/28/2024 12:41 PM ADVENTURE EDUCATION TEACHER Fall, initial encounter CT THORACIC SPINE WO CONTRAST STAT 08/28/2024 12:41 PM ADVENTURE EDUCATION TEACHER Fall, initial encounter CT CHEST ABDOMEN PELVIS W CONT STAT 08/28/2024 12:41 PM ADVENTURE EDUCATION TEACHER Fall, initial encounter CT CERVICAL SPINE WO CONTRAST STAT 08/28/2024 12:41 PM ADVENTURE EDUCATION TEACHER Fall, initial encounter CT HEAD WO CONTRAST STAT 08/28/2024 1 2:41 PM ADVENTURE EDUCATION TEACHER Fall, initial encounter BLOOD TYPE VERIFICATION STAT 08/28/2024 12:36 PM ADVENTURE EDUCATION TEACHER XR CHEST 1VW PORTABLE STAT 08/28/2024 12:25 PM ADVENTURE EDUCATION TEACHER Fall, initial encounter TYPE + SCREEN PANEL STAT 08/28/2024 1 2:21 PM ADVENTURE EDUCATION TEACHER PT-INR [facility] STAT 08/28/2024 12:21 PM ADVENTURE EDUCATION TEACHER CBC W AUTO DIFFERENTIAL STAT 08/28/2024 12:21 PM ADVENTURE EDUCATION TEACHER BASIC METABOLIC PANEL (CALCIUM TOTAL) STAT 08/28/2024 12:21 PM ADVENTURE EDUCATION TEACHER ALCOHOL ETHYL BLOOD STAT 08/28/2024 1 2:21 PM ADVENTURE EDUCATION TEACHER from Last 3 Months Results * XR Lumbar Spine 2 or 3Vw (10/14/2024 2:43 PM ADVENTURE EDUCATION TEACHER) Only the most recent of2 resultswithin the time period is included. Anatomical Region Laterality Modality Spine Computed Radiogr aphy 10/14/2024 2:47 PM ADVENTURE EDUCATION TEACHER Impressions 10/14/2024 3:01 PM ADVENTURE EDUCATION TEACHER IMPRESSION: 1.No acute fracture or malalignment identified. 2.Multilevel degenerative changes of the lumbar spine. 3.L1 vertebral body lesion compatible with a hemangioma. Report dictated by Walt Maddox MD (vice president of sales). I, Rory Almonte MD have personally reviewed and interpreted this examination/study. > Interpreting Provider: Rory Almonte MD on 10/14/2024 3:01 PM Narrative 10/14/2024 3:01 PM ADVENTURE EDUCATION TEACHER PROCEDURE: ??XR LUMBAR SPINE 2 OR 3VW, DATE/TIME OF EXAM: ??10/14/2024 2:44 PM, LOCATION ??[facility] INDICATION: M54.50: Low back pain, unspecified back pain laterality, unspecified chronicity, unspecified whether sciatica present ORDERING PROVIDER REASON FOR EXAM: back pain COMPARISON: X-ray of lumbar spine 08/28/2024. CT lumbar spine 08/28/2024. FINDINGS: The vertebral bodies are normally aligned. There is no fracture or compression deformity. There is mild intervertebral disc space narrowing. Facet arthropathy, most severe at lower lumbar levels. Multiple vertebral body osteophytes are again noted, most prominent at superior anterior L1 and L2 vertebra.There is heterogeneous attenuation of the L1 vertebral body, which upon correlation with the CT represents a hemangioma. Diffuse atherosclerosis of the imaged abdominal aorta. Procedure Note Rory Almonte MD - 10/14/2024 PROCEDURE: XR LUMBAR SPINE 2 OR 3VW, DATE/TIME OF EXAM: 10/14/2024 2:44 PM, LOCATION [facility] INDICATION: M54.50: Low back pain, unspecified back pain laterality, unspecified chronicity, unspecified whether sciatica present ORDERING PROVIDER REASON FOR EXAM: back pain COMPARISON: X-ray of lumbar spine 08/28/2024. CT lumbar spine 08/28/2024. FINDINGS: The vertebral bodies are normally aligned. There is no fracture or compression deformity. There is mild intervertebral disc spacenarrowing. Facet arthropathy, most severe at lower lumbar levels. Multiplevertebral body osteophytes are again noted, most prominent at superior anterior L1 and L2 vertebra.There is heterogeneous attenuation of the L1 vertebral body, which upon correlation with the CT represents a hemangioma.Diffuse atherosclerosis of the imaged abdominal aorta. IMPRESSION: 1.No acute fracture or malalignment identified. 2.Multilevel degenerative changes of the lumbar spine. 3.L1 vertebral body lesion compatible with a hemangioma. Report dictated by Walt Maddox MD (vice president of sales). I, Rory Almonte MD have personally reviewed and interpreted this examination/study. > Interpreting Provider: Rory Almonte MD on 10/14/2024 3:01 PM Julia Amezquita PA-C DIAGNOSTIC IMAGING ORDERABLES * CBC W/O DIFFERENTIAL (08/29/2024 4:38 AM ADVENTURE EDUCATION TEACHER) [facility] WBC 9.5 4.0 - 10.7 x10E9/L 08/29/2024 5:18 AM ADVENTURE EDUCATION TEACHER [facility] RBC Count 4.64 4.30 - 5.80 x10E12/L 08/29/2024 5:18 AM [facility] Hemoglobin 14.2 13.3 - 17.5 g/dL 08/29/2024 5:18 AM [facility] Hematocrit 41.7 38.7 - 51.1 % 08/29/2024 5:18 AM [facility] MCV 89.9 80.0 - 98.0 fL 08/29/2024 5:18 AM [facility] MCH 30.6 26.7 - 33.6 pg 08/29/2024 5:18 AM [facility] MCHC 34.1 31.7 - 36.3 g/dL 08/29/2024 5:18 AM [facility] RDW-CV 12.9 11.3 - 14.8 % 08/29/2024 5:18 AM [facility] Platelet Count 298 150 - 420 x10E9/L 08/29/2024 5:18 AM [facility] MPV 10.2 7.8 - 11.4 fL 08/29/2024 5:18 AM [facility] Blood BLOOD SPECIMEN / Unknown Lab Venipuncture / Unknown 08/29/2024 4:38 AM ADVENTURE EDUCATION TEACHER 08/29/2024 5:14 AM ADVENTURE EDUCATION TEACHER Chris Rodas MD LAB - HEMATOLOGY OR DERABLES Performing Organization Address [facility] [place]/State/ZIP Co de Phone Number [facility] [address] [place] [phone], [facility] [phone] * (ABNORMAL) BASIC METABOLIC PANEL (CALCIUM TOTAL) (08/29/2024 4:38 AM ADVENTURE EDUCATION TEACHER) Only the most recent of2 resultswithin the time period is included. BUN 17 7 - 26 mg/dL 08/29/2024 5:52 AM [facility] Creatinine 1.11 0.71 - 1.16 mg/dL 08/29/2024 5:52 AM [facility] Sodium 137 136 - 145 mmol/L 08/29/2024 5:52 AM [facility] Potassium 4.5 3.5 - 4.5 mmol/L 08/29/2024 5:52 AM [facility] Chloride 103 98 - 107 mmol/L 08/29/2024 5:52 AM [facility] CO2 23 22 - 29 mmol/L 08/29/2024 5:52 AM [facility] Glucose 95 70 - 99 mg/dL 08/29/2024 5:52 AM [facility] Calcium 9.0 8.4 - 10.2 mg/dL 08/29/2024 5:52 AM [facility] Anion Gap 11 6 - 16 08/29/2024 5:52 AM [facility] BUN/Creatinine Ratio 15 7 - 23 08/29/2024 5:52 AM [facility] Osmolality Calculated 285 275 - 295 mOsm/kg 08/29/2024 5:52 AM [facility] eGFR by CKD-EPI 68(L) >=90 mL/min/1.7 3 m2 08/29/2024 5:52 AM [facility] Blood BLOOD SPECIMEN / Unknown Lab Venipuncture / Unknown 08/29/2024 4:38 AM ADVENTURE EDUCATION TEACHER 08/29/2024 5:14 AM ADVENTURE EDUCATION TEACHER Chris Rodas MD LAB - CHEMISTRY ORD ERABLES [address] [phone], [facility] [phone] * PHOSPHORUS BLOOD (08/29/2024 4:38 AM ADVENTURE EDUCATION TEACHER) Phosphorus 4.2 2.8 - 5.1 mg/dL 08/29/2024 5:52 AM [facility] Blood BLOOD SPECIMEN / Unknown Lab Venipuncture / Unknown 08/29/2024 4:38 AM ADVENTURE EDUCATION TEACHER 08/29/2024 5:14 AM ADVENTURE EDUCATION TEACHER Chris Rodas MD LAB - CHEMISTRY ORD ERABLES [address] [phone], [facility] [phone] * MAGNESIUM BLOOD (08/29/2024 4:38 AM ADVENTURE EDUCATION TEACHER) Magnesium 2.1 1.6 - 2.6 mg/dL 08/29/2024 5:52 AM ADVENTURE EDUCATION TEACHER [facility] Blood BLOOD SPECIMEN / Unknown Lab Venipuncture / Unknown 08/29/2024 4:38 AM ADVENTURE EDUCATION TEACHER 08/29/2024 5:14 AM ADVENTURE EDUCATION TEACHER Chris Rodas MD LAB - CHEMISTRY ORD ERABLES [facility] [address] [place] [address], [facility] [phone] * XR CHEST 1VW PORTABLE (08/29/2024 4:14 AM ADVENTURE EDUCATION TEACHER) Only the most recent of2 resultswithin the time period is included. Anatomical Region Laterality Modality Chest Digital Radiogra phy 08/29/2024 9:47 PM ADVENTURE EDUCATION TEACHER Impressions 08/29/2024 9:49 PM ADVENTURE EDUCATION TEACHER IMPRESSION: Stable cardiomediastinal silhouette. Atherosclerotic aorta. Low lung volumes. Mild bibasilar atelectasis. No large pleural effusion or pneumothorax. > Interpreting Provider: Travis Donis MD on 08/29/2024 9:49 PM Narrative 08/29/2024 9:49 PM ADVENTURE EDUCATION TEACHER PROCEDURE: ??XR CHEST 1VW PORTABLE DATE/TIME OF EXAM: ??08/29/2024 4:14 AM CLINICAL INFORMATION: None relevant/not provided if blank. Indication: W19.XXXA: Fall, initial encounter Additional History: COMPARISON: 08/28/2024 Procedure Note Travis Donis MD - 08/29/2024 PROCEDURE: XR CHEST 1VW PORTABLE DATE/TIME OF EXAM: 08/29/2024 4:14 AM CLINICAL INFORMATION: None relevant/not provided if blank. Indication: W19.XXXA: Fall, initial encounter Additional History: COMPARISON: 08/28/2024 IMPRESSION: Stable cardiomediastinal silhouette. Atherosclerotic aorta. Low lung volumes. Mild bibasilar atelectasis. No large pleural effusion or pneumothorax. > Interpreting Provider: Travis Donis MD on 08/29/2024 9:49 PM Chris Rodas MD DIAGNOSTIC IMAGING ORDERABLES * (ABNORMAL) SARS-COV-2 (COVID-19) RAPID (08/28/2024 4:00 PM ADVENTURE EDUCATION TEACHER) COVID-19 PCR Detected( A) Not detected 08/28/2024 4:51 [address] ADVENTURE EDUCATION TEACHER [facility] Microbiology SPECIMEN FROM NASOPHARYNGEAL STRUCTURE / Unknown Collection / Unknown 08/28/2024 4:00 PM ADVENTURE EDUCATION TEACHER 08/28/2024 4:08 PM ADVENTURE EDUCATION TEACHER [facility] - 08/28/2024 4:51 PM ADVENTURE EDUCATION TEACHER The [employer] Xpert Xpress SARS-COV-2 has been authorized by the Food and Drug Administration (FDA) under an Emergency Use Authorization (EUA). This test has been validated in accordance with the FDA's guidance document Policy for Diagnostic Testing in Laboratories Certified to perform High Complexity Testing under CLIA prior to Emergency Use Authorization for Coronavirus Disease-2019 during the Public Health Emergency issued on November 30, 2019. FDA independent review of this validation is pending. This test is only authorized for the duration of the time the declaration that circumstances exist justifying the authorization of emergency use of in vitro diagnostic tests for detection of SARS-COV-2 virus and/or diagnosis of COVID-19 infection under 564(b) (1) of the Act. 21 U.S.C. 360bbb-3 (b) (1), unless the authorization is terminated or revoked sooner. Fact Sheets for this EUA assay are available upon request. Jam Estrella MD LAB - MICROBIOLOGY O RDERABLES [facility] [address] [place] [phone], [facility] [phone] * (ABNORMAL) URINE DRUG SCREEN IMMUNOASSAY (08/28/2024 12:52 PM ADVENTURE EDUCATION TEACHER) Pathologist [facility] Amphetamines Screen Urine Negative Negative : < 1000 ng/mL 08/28/2024 1:27 [address] ADVENTURE EDUCATION TEACHER [facility] Barbiturates Screen Urine Negative Negative : < 200 ng/mL 08/28/2024 1:27 PM [facility] Benzodiazepine Screen Urine Negative Negative : < 200 ng/mL 08/28/2024 1:27 PM [facility] Opiates Urine Positive(A) Negative : < 300 ng/mL 08/28/2024 1:27 PM [facility] Comment:Positive urine opiat e screening results should be confirmed by another generally accepted non-immunological method such as gas chromatography or mass spectrometry. Cocaine Metabolites Urine Negative Negative : < 300 ng/mL 08/28/2024 1:27 PM [facility] Phencyclidine Screen Urine Negative Negative : < 25 ng/ml 08/28/2024 1:27 PM [facility] Cannabinoids Screen Urine Negative Negative : <50 ng/mL 08/28/2024 1:27 PM [facility] Methadone Screen Urine Negative Negative : < 300 ng/mL 08/28/2024 1:27 PM [facility] Fentanyl Screen Urine Negative Negative : <1.5 ng/mL 08/28/2024 1:27 PM [facility] Urine URINE / Unknown Collection / Unknown 08/28/2024 12:52 PM [facility] 08/28/2024 12:55 PM [facility] - 08/28/2024 1:27 PM [facility] The Urine Toxicology Screening Panel does not screen for Propoxyphene, Meprobamate, Carisoprodol, Trazodone, zevp-abh-risrxha medications and/or volatiles (Acetone, Isopropanol, Methanol or Ethylene Glycol). Ethanol, Salicylate, Acetaminophen, Tricyclic Antidepressants and several therapeutic drugs may be individually assayed in serum or plasma specimen. Toxicology testing by the [facility] is an aid to medical diagnosis and treatment of patients. No documented chain of custody was maintained. Results are intended to be used for clinical purposes only. ? James Casillas MD LAB - URINE CHEMIS TRY ORDERABLES [facility] [address] [place] [address], [facility] [phone] * CT CHEST ABDOMEN PELVIS W CONT - Abdomen-pelvis trauma, blunt or penetrating (08/28/2024 12:41 PM ADVENTURE EDUCATION TEACHER) Anatomical Region Laterality Modality Chest, Abdomen, Pelvis Computed Tomography 08/28/2024 12:4 8 PM ADVENTURE EDUCATION TEACHER Impressions 08/28/2024 1:04 PM ADVENTURE EDUCATION TEACHER IMPRESSION: Minimally displaced fracture of the right posterior 11th rib and fracture of the anterior end of right eighth rib. Otherwise no acute fractures elsewhere. No acute intrathoracic, intra-abdominal or pelvic visceral injury seen. Cardiomegaly. Atherosclerotic disease of the coronary arteries, aorta and branches. Cholelithiasis without evidence of acute cholecystitis. > Interpreting Provider: Giovani Trammell MD on 08/28/2024 1:04 PM Narrative 08/28/2024 1:04 PM ADVENTURE EDUCATION TEACHER PROCEDURE: ??CT CHEST ABDOMEN PELVIS W CONT DATE/TIME OF EXAM: ??08/28/2024 12:42 PM CLINICAL INFORMATION: None relevant/not provided if blank. Indication: Trauma Additional History: COMPARISON: None. TECHNIQUE: CT of the chest, abdomen and pelvis was performed following intravenous contrast utilizing standard protocol. CT dose reduction technique was used, including Automated Exposure Control. ?? CONTRAST: ?? IOPAMIDOL 76 % IV SOLN:100 mL FINDINGS: CHEST: Lungs: Clear. Pleura: No significant pleural effusion. No pneumothorax. Heart: Mild cardiomegaly. Coronary artery atherosclerotic disease. Bessie/Mediastinum: No abnormally enlarged hilar or mediastinal lymph nodes by noncontrast technique. ABDOMEN AND PELVIS: Hepatobiliary System: Normal. Small hepatic cysts are noted. Gallbladder: Multiple gallstones are seen without evidence of acute cholecystitis. Spleen: Calcified granulomas are seen in the spleen. Otherwise unremarkable. Pancreas: Normal. Kidneys/Bladder: Approximately 1.5 cm simple cyst in the left kidney. No focal lesions identified elsewhere in the kidneys. No stones or hydronephrosis. No perinephric fluid collection. Ureters are nondilated. Urinary bladder was well distended and grossly normal. Adrenal Glands: Normal. Gastrointestinal: Normal. Appendix: Normal. Pelvic Organs: Normal. Peritoneal Cavity: Normal. Vascular: Normal. Bones: Minimally displaced fracture of the posterior third of right 11th rib and fracture of the anterior end of right eighth rib. L1 vertebral body hemangioma. Degenerative changes are seen in the spine and hip joints mainly left hip. Procedure Note Giovani Trammell MD - 08/28/2024 PROCEDURE: CT CHEST ABDOMEN PELVIS W CONT DATE/TIME OF EXAM: 08/28/2024 12:42 PM CLINICAL INFORMATION: None relevant/not provided if blank. Indication: Trauma Additional History: COMPARISON: None. TECHNIQUE: CT of the chest, abdomen and pelvis was performed following intravenous contrast utilizing standard protocol. CT dose reduction technique was used, including Automated ExposureControl. CONTRAST: IOPAMIDOL 76 % IV SOLN:100 mL FINDINGS: CHEST: Lungs: Clear. Pleura: No significant pleural effusion. No pneumothorax. Heart: Mild cardiomegaly. Coronary artery atherosclerotic disease. Bessie/Mediastinum: No abnormally enlarged hilar or mediastinal lymphnodes by noncontrast technique. ABDOMEN AND PELVIS: Hepatobiliary System: Normal. Small hepatic cysts are noted. Gallbladder: Multiple gallstones are seen without evidence of acute cholecystitis. Spleen: Calcified granulomas are seen in the spleen. Otherwise unremarkable. Pancreas: Normal. Kidneys/Bladder: Approximately 1.5 cm simple cyst in the left kidney. No focal lesions identified elsewhere in the kidneys. No stones or hydronephrosis. No perinephric fluid collection. Ureters are nondilated. Urinary bladder was well distended and grossly normal. Adrenal Glands: Normal. Gastrointestinal: Normal. Appendix: Normal. Pelvic Organs: Normal. Peritoneal Cavity: Normal. Vascular: Normal. Bones: Minimally displaced fracture of the posterior third of right 11th rib and fracture of the anterior end of right eighth rib. L1 vertebralbody hemangioma. Degenerative changes are seen in the spine and hip joints mainly left hip. IMPRESSION: Minimally displaced fracture of the right posterior 11th rib andfracture of the anterior end of right eighth rib. Otherwise no acute fractures elsewhere. No acute intrathoracic, intra-abdominal or pelvic visceral injury seen. Cardiomegaly. Atherosclerotic disease of the coronary arteries, aortaand branches. Cholelithiasis without evidence of acute cholecystitis. > Interpreting Provider: Giovani Trammell MD on 41:04 PM James Casillas MD CT ORDERABLES * CT LUMBAR SPINE WO CONTRAST - T/L-spine trauma, Spine fracture (08/28/2024 12:41 PM [employer]VENTURE [employer]UCATION TEACHER) Anatomical Region Laterality Modality Spine Computed Tomogra phy 08/28/2024 12:5 7 PM [employer]URE EDUCATION TEACHER Impressions 08/28/2024 1:50 PM ADVENTURE EDUCATION TEACHER IMPRESSION: 1. No evidence of acute fracture in the thoracic spine. 2. Mildly displaced acute fractures of the right L1, L2 and L3 transverse processes. > Interpreting Provider: Barak Alcaraz MD on 08/28/2024 1:50 PM Narrative 08/28/2024 1:50 PM ADVENTURE EDUCATION TEACHER PROCEDURE: ??CT THORACIC SPINE WO CONTRAST, CT LUMBAR SPINE WO CONTRAST, DATE/TIME OF EXAM: ??08/28/2024 12:42 PM, LOCATION ??[facility] INDICATION: Trauma ADDITIONAL CLINICAL INFORMATION: Ordering Provider Reason For Exam: Technologist Note: Additional: EXAMINATION: 1. Computed tomography (CT) of the thoracic spine without contrast 2. CT of the lumbar spine without contrast TECHNIQUE: Reformatted axial, sagittal, and coronal images of the thoracic and lumbar spine were obtained by the technologist from a concurrently performed body CT and sent to the workstation for review. COMPARISON: No prior study is available for comparison at the time of this dictation. FINDINGS: Thoracic spine: No soft tissue abnormality is identified. The alignment is normal. The bones are mildly osteopenic. Vertebral bodies are normal in height without evidence of acute fracture. There is mild multilevel degenerative disc disease. The central canal is patent. There are varying degrees of mild facet osteoarthritis. No neural foraminal stenosis is seen. Lumbar spine: There is atherosclerotic calcification of the abdominal aorta and its branch vessels. There are mildly displaced acute fractures of the right L1, L2 and L3 transverse processes. The alignment is normal. The bones are mildly osteopenic. 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 Vertebral bodies are normal in height without evidence of acute fracture. There is mild multilevel degenerative disc disease. The central canal is patent. There are varying degrees of up to moderate facet osteoarthritis. No neural foraminal stenosis is seen. Procedure Note Barak Alcaraz MD - 08/28/2024 PROCEDURE: CT THORACIC SPINE WO CONTRAST, CT LUMBAR SPINE WO CONTRAST, DATE/TIME OF EXAM: 08/28/2024 12:42 PM, LOCATION [facility] INDICATION: Trauma ADDITIONAL CLINICAL INFORMATION: Ordering Provider Reason For Exam: Technologist Note: Additional: EXAMINATION: 1. Computed tomography (CT) of the thoracic spine without contrast 2. CT of the lumbar spine without contrast TECHNIQUE: Reformatted axial, sagittal, and coronal images of thethoracic and lumbar spine were obtained by the technologist from a concurrently performed body CT and sent to the workstation for review. COMPARISON: No prior study is available for comparison at the time ofthis dictation. FINDINGS: Thoracic spine: No soft tissue abnormality is identified. The alignment is normal. The bones are mildly osteopenic. Vertebralbodies are normal in height without evidence of acute fracture. There is mild multilevel degenerative disc disease. The central canal is patent. There are varying degrees of mild facet osteoarthritis. No neural foraminal stenosis is seen. Lumbar spine: There is atherosclerotic calcification of the abdominal aorta and its branch vessels. There are mildly displaced acute fractures of the right L1, L2 and L3 transverse processes. The alignment is normal. The bones are mildly osteopenic. There is alarge hemangioma in the L1 vertebral body. Vertebral bodies are normal inheight without evidence of acute fracture. There is mild multileveldegenerative disc disease. The central canal is patent. There are varying degrees ofup to moderate facet osteoarthritis. No neural foraminal stenosis is seen. IMPRESSION: 1. No evidence of acute fracture in the thoracic spine. 2. Mildly displaced acute fractures of the right L1, L2 and [id number] processes. > Interpreting Provider: Barak Alcaraz MD on 08/28/2024 1:50 PM James Casillas MD CT ORDERABLES * CT THORACIC SPINE WO CONTRAST - T/L-spine trauma, spine fracture (08/28/2024 12:41 PM [employer]UC[employer] TE[employer]ER) Anatomical Region Laterality Modality Spine Computed Tomogra phy 08/28/2024 12:5 7 PM [employer]UCATION TEACHER Impressions 08/28/2024 1:50 PM AD[employer]URE EDUCATION TEACHER IMPRESSION: 1. No evidence of acute fracture in the thoracic spine. 2. Mildly displaced acute fractures of the right L1, L2 and L3 transverse processes. > Interpreting Provider: Barak Alcaraz MD on 08/28/2024 1:50 PM Narrative 08/28/2024 1:50 PM [employer]UC[employer] TEACHER PROCEDURE: ??CT THORACIC SPINE WO CONTRAST, CT LUMBAR SPINE WO CONTRAST, DATE/TIME OF EXAM: ??08/28/2024 12:42 PM, LOCATION ??[facility] INDICATION: Trauma ADDITIONAL CLINICAL INFORMATION: Ordering Provider Reason For Exam: Technologist Note: Additional: EXAMINATION: 1. Computed tomography (CT) of the thoracic spine without contrast 2. CT of the lumbar spine without contrast TECHNIQUE: Reformatted axial, sagittal, and coronal images of the thoracic and lumbar spine were obtained by the technologist from a concurrently performed body CT and sent to the workstation for review. COMPARISON: No prior study is available for comparison at the time of this dictation. FINDINGS: Thoracic spine: No soft tissue abnormality is identified. The alignment is normal. The bones are mildly osteopenic. Vertebral bodies are normal in height without evidence of acute fracture. There is mild multilevel degenerative disc disease. The central canal is patent. There are varying degrees of mild facet osteoarthritis. No neural foraminal stenosis is seen. Lumbar spine: There is atherosclerotic calcification of the abdominal aorta and its branch vessels. There are mildly displaced acute fractures of the right L1, L2 and L3 transverse processes. The alignment is normal. The bones are mildly osteopenic. 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 Vertebral bodies are normal in height without evidence of acute fracture. There is mild multilevel degenerative disc disease. The central canal is patent. There are varying degrees of up to moderate facet osteoarthritis. No neural foraminal stenosis is seen. Procedure Note Barak Alcaraz MD - 08/28/2024 PROCEDURE: CT THORACIC SPINE WO CONTRAST, CT LUMBAR SPINE WO CONTRAST, DATE/TIME OF EXAM: 08/28/2024 12:42 PM, LOCATION [facility] INDICATION: Trauma ADDITIONAL CLINICAL INFORMATION: Ordering Provider Reason For Exam: Technologist Note: Additional: EXAMINATION: 1. Computed tomography (CT) of the thoracic spine without contrast 2. CT of the lumbar spine without contrast TECHNIQUE: Reformatted axial, sagittal, and coronal images of thethoracic and lumbar spine were obtained by the technologist from a concurrently performed body CT and sent to the workstation for review. COMPARISON: No prior study is available for comparison at the time ofthis dictation. FINDINGS: Thoracic spine: No soft tissue abnormality is identified. The alignment is normal. The bones are mildly osteopenic. Vertebralbodies are normal in height without evidence of acute fracture. There is mild multilevel degenerative disc disease. The central canal is patent. There are varying degrees of mild facet osteoarthritis. No neural foraminal stenosis is seen. Lumbar spine: There is atherosclerotic calcification of the abdominal aorta and its branch vessels. There are mildly displaced acute fractures of the right L1, L2 and L3 transverse processes. The alignment is normal. The bones are mildly osteopenic. There is alarge hemangioma in the L1 vertebral body. Vertebral bodies are normal inheight without evidence of acute fracture. There is mild multileveldegenerative disc disease. The central canal is patent. There are varying degrees ofup to moderate facet osteoarthritis. No neural foraminal stenosis is seen. IMPRESSION: 1. No evidence of acute fracture in the thoracic spine. 2. Mildly displaced acute fractures of the right L1, L2 and [id number] processes. > Interpreting Provider: Barak Alcaraz MD on 08/28/2024 1:50 PM James Casillas MD CT ORDERABLES * CT CERVICAL SPINE WO CONTRAST - C-Spine Trauma, Spine fracture (08/28/2024 12:41 PM [employer]URE [employer]UC[employer] TEACHER) Anatomical Region Laterality Modality Spine Computed Tomogra phy 08/28/2024 12:4 2 PM [employer] EDUCATION TEACHER Impressions 08/28/2024 12:57 PM [employer]URE EDUCATION TEACHER IMPRESSION: 1. No acute intracranial process. 2. No evidence of acute fracture in the cervical spine. > Interpreting Provider: Barak Alcaraz MD on 08/28/2024 12:57 PM Narrative 08/28/2024 12:57 PM [employer] EDUCATION TEACHER PROCEDURE: ??CT HEAD WO CONTRAST, CT CERVICAL SPINE WO CONTRAST, DATE/TIME OF EXAM: ??08/28/2024 12:42 PM, LOCATION ??[facility] INDICATION: Trauma ADDITIONAL CLINICAL INFORMATION: Ordering Provider Reason For Exam: Technologist Note: Additional: EXAMINATION: ?? 1. Computed tomography (CT) of the head without contrast 2. CT of the cervical spine without contrast TECHNIQUE: CT of the head and cervical spine were performed without contrast according to standard protocol. COMPARISON: No prior study is available for comparison at the time of this dictation. FINDINGS: Head: No acute intracranial hemorrhage or intra- or extra-axial fluid collections are identified. There is mild cerebral volume loss with associated ex vacuo ventricular dilatation. The basal cisterns are patent. No mass effect or midline shift is seen. The gunn-white matter differentiation is normal. Periventricular white matter hypoattenuation is a nonspecific finding that may be indicative of chronic small vessel ischemic disease. There is atherosclerotic calcification of the carotid siphons. The visualized portions of the orbits, paranasal sinuses, and mastoids appear normal. No acute calvarial fracture is identified. Cervical spine: There is atherosclerotic calcification of the carotid bifurcations. The alignment is normal. The prevertebral soft tissue is normal in thickness. The bones are mildly osteopenic. Vertebral bodies are normal in height without evidence of acute fracture. Other than middle atlantoaxial joint osteoarthritis, the craniocervical junction appears normal. There is mild to moderate multilevel degenerative disc disease. The central canal is patent. There are varying degrees of mild to moderate multiple facet osteoarthritis. There are varying degrees of mild uncovertebral joint osteoarthritis. No neural foraminal stenosis is seen. Procedure Note Barak Alcaraz MD - 08/28/2024 PROCEDURE: CT HEAD WO CONTRAST, CT CERVICAL SPINE WO CONTRAST,DATE/TIME OF EXAM: 08/28/2024 12:42 PM, LOCATION [facility] INDICATION: Trauma ADDITIONAL CLINICAL INFORMATION: Ordering Provider Reason For Exam: Technologist Note: Additional: EXAMINATION: 1. Computed tomography (CT) of the head without contrast 2. CT of the cervical spine without contrast TECHNIQUE: CT of the head and cervical spine were performed without contrast according to standard protocol. COMPARISON: No prior study is available for comparison at the time ofthis dictation. FINDINGS: Head: No acute intracranial hemorrhage or intra- or extra-axial fluidcollections are identified. There is mild cerebral volume loss with associated exvacuo ventricular dilatation. The basal cisterns are patent. No mass effect or midline shift is seen. The gunn-white matter differentiation is normal. Periventricular white matter hypoattenuation is a nonspecific findingthat may be indicative of chronic small vessel ischemic disease. There is atherosclerotic calcification of the carotid siphons. The visualized portions of the orbits, paranasal sinuses, and mastoids appear normal. No acute calvarial fracture is identified. Cervical spine: There is atherosclerotic calcification of the carotid bifurcations. The alignment is normal. The prevertebral soft tissue is normal in thickness. The bones are mildly osteopenic. Vertebral bodies are normalin height without evidence of acute fracture. Other than middleatlantoaxial joint osteoarthritis, the craniocervical junction appears normal. Thereis mild to moderate multilevel degenerative disc disease. The central canalis patent. There are varying degrees of mild to moderate multiple facet osteoarthritis. There are varying degrees of mild uncovertebral joint osteoarthritis. No neural foraminal stenosis is seen. IMPRESSION: 1. No acute intracranial process. 2. No evidence of acute fracture in the cervical spine. > Interpreting Provider: Barak Alcaraz MD on 08/28/2024 12:57 PM James Casillas MD CT ORDERABLES * CT HEAD WO CONTRAST - Head Trauma, CSF leak, mental status changes (08/28/2024 12:41 PM ADVENTURE EDUCATION TEACHER) Anatomical Region Laterality Modality Head Computed Tomogra phy 08/28/2024 12:4 2 PM AD[employer]URE EDUCATION TEACHER Impressions 08/28/2024 12:57 PM ADVENTURE EDUCATION TEACHER IMPRESSION: 1. No acute intracranial process. 2. No evidence of acute fracture in the cervical spine. > Interpreting Provider: Barak Alcaraz MD on 08/28/2024 12:57 PM Narrative 08/28/2024 12:57 PM AD[employer]URE EDUCATION TEACHER PROCEDURE: ??CT HEAD WO CONTRAST, CT CERVICAL SPINE WO CONTRAST, DATE/TIME OF EXAM: ??08/28/2024 12:42 PM, LOCATION ??[facility] INDICATION: Trauma ADDITIONAL CLINICAL INFORMATION: Ordering Provider Reason For Exam: Technologist Note: Additional: EXAMINATION: ?? 1. Computed tomography (CT) of the head without contrast 2. CT of the cervical spine without contrast TECHNIQUE: CT of the head and cervical spine were performed without contrast according to standard protocol. COMPARISON: No prior study is available for comparison at the time of this dictation. FINDINGS: Head: No acute intracranial hemorrhage or intra- or extra-axial fluid collections are identified. There is mild cerebral volume loss with associated ex vacuo ventricular dilatation. The basal cisterns are patent. No mass effect or midline shift is seen. The gunn-white matter differentiation is normal. Periventricular white matter hypoattenuation is a nonspecific finding that may be indicative of chronic small vessel ischemic disease. There is atherosclerotic calcification of the carotid siphons. The visualized portions of the orbits, paranasal sinuses, and mastoids appear normal. No acute calvarial fracture is identified. Cervical spine: There is atherosclerotic calcification of the carotid bifurcations. The alignment is normal. The prevertebral soft tissue is normal in thickness. The bones are mildly osteopenic. Vertebral bodies are normal in height without evidence of acute fracture. Other than middle atlantoaxial joint osteoarthritis, the craniocervical junction appears normal. There is mild to moderate multilevel degenerative disc disease. The central canal is patent. There are varying degrees of mild to moderate multiple facet osteoarthritis. There are varying degrees of mild uncovertebral joint osteoarthritis. No neural foraminal stenosis is seen. Procedure Note Barak Alcaraz MD - 08/28/2024 PROCEDURE: CT HEAD WO CONTRAST, CT CERVICAL SPINE WO CONTRAST,DATE/TIME OF EXAM: 08/28/2024 12:42 PM, LOCATION [facility] INDICATION: Trauma ADDITIONAL CLINICAL INFORMATION: Ordering Provider Reason For Exam: Technologist Note: Additional: EXAMINATION: 1. Computed tomography (CT) of the head without contrast 2. CT of the cervical spine without contrast TECHNIQUE: CT of the head and cervical spine were performed without contrast according to standard protocol. COMPARISON: No prior study is available for comparison at the time ofthis dictation. FINDINGS: Head: No acute intracranial hemorrhage or intra- or extra-axial fluidcollections are identified. There is mild cerebral volume loss with associated exvacuo ventricular dilatation. The basal cisterns are patent. No mass effect or midline shift is seen. The gunn-white matter differentiation is normal. Periventricular white matter hypoattenuation is a nonspecific findingthat may be indicative of chronic small vessel ischemic disease. There is atherosclerotic calcification of the carotid siphons. The visualized portions of the orbits, paranasal sinuses, and mastoids appear normal. No acute calvarial fracture is identified. Cervical spine: There is atherosclerotic calcification of the carotid bifurcations. The alignment is normal. The prevertebral soft tissue is normal in thickness. The bones are mildly osteopenic. Vertebral bodies are normalin height without evidence of acute fracture. Other than middleatlantoaxial joint osteoarthritis, the craniocervical junction appears normal. Thereis mild to moderate multilevel degenerative disc disease. The central canalis patent. There are varying degrees of mild to moderate multiple facet osteoarthritis. There are varying degrees of mild uncovertebral joint osteoarthritis. No neural foraminal stenosis is seen. IMPRESSION: 1. No acute intracranial process. 2. No evidence of acute fracture in the cervical spine. > Interpreting Provider: Barak Alcaraz MD on 08/28/2024 12:57 PM James Casillas MD CT ORDERABLES * BLOOD TYPE VERIFICATION (08/28/2024 12:36 PM ADVENTURE EDUCATION TEACHER) ABO Rh A POS 08/28/2024 1:1 1 PM [facility] Blood Bank BLOOD SPECIMEN / Unknown Venipuncture / Unknown 08/28/2024 12:36 PM AD[employer]URE EDUCATION TEACHER 08/28/2024 12:41 PM ADVENTURE EDUCATION TEACHER James Casillas MD LAB - BLOOD BANK O RDERABLES [facility] [address] [place] [address], [facility] [phone] * PT-INR [facility] (08/28/2024 12:21 PM ADVENTURE EDUCATION TEACHER) PT 14.7 12.1 - 14.8 Seconds 08/28/2024 1:01 PM [facility] INR 1.1 See Comment 08/28/2024 1:01 PM [facility] Comment:The suggested therap eutic range for standard coumadin (warfarin) therapy is an INR of 2.0-3.0. For high-risk patients (Mechanical Mitral Valve Prosthesis, etc.), the suggested prophylactic therapeutic range is an INR of 2.5-3.5. Blood BLOOD SPECIMEN / Unknown Venipuncture / Unknown 08/28/2024 12:21 PM AD[employer]URE EDUCATION TEACHER 08/28/2024 12:24 PM ADVENTURE EDUCATION TEACHER James Casillas MD LAB - COAGULATION ORDERABLES [facility] [address] [place] [id number], [facility] [phone] * TYPE + SCREEN PANEL (08/28/2024 12:21 PM ADVENTURE EDUCATION TEACHER) [facility] Antibody Screen NEG 1:03 PM ADVENTURE EDUCATION TEACHER [facility] ABO Rh A POS 08/28/2024 1:03 PM ADVENTURE EDUCATION TEACHER [facility] Blood Bank BLOOD SPECIMEN / Unknown Venipuncture / Unknown 08/28/2024 12:21 PM ADVENTURE EDUCATION TEACHER 08/28/2024 12:25 PM ADVENTURE EDUCATION TEACHER James Casillas MD LAB - BLOOD BANK O RDERABLES Performing Organization Address City/[facility]/ZIP Co de Phone Number [facility] [address] [place] [address], [facility] [phone] * (ABNORMAL) CBC W AUTO DIFFERENTIAL (08/28/2024 12:21 PM ADVENTURE EDUCATION TEACHER) [facility] WBC 10.3 4.0 - 10.7 x10E9/L 08/28/2024 12:36 PM [facility] RBC Count 4.41 4.30 - 5.80 x10E12/L 08/28/2024 12:36 PM [facility] Hemoglobin 13.6 13.3 - 17.5 g/dL 08/28/2024 12:36 PM [facility] Hematocrit 39.2 38.7 - 51.1 % 08/28/2024 12:36 PM [facility] MCV 88.9 80.0 - 98.0 fL 08/28/2024 12:36 PM [facility] MCH 30.8 26.7 - 33.6 pg 08/28/2024 12:36 PM [facility] MCHC 34.7 31.7 - 36.3 g/dL 08/28/2024 12:36 PM [facility] RDW-CV 12.9 11.3 - 14.8 % 08/28/2024 12:36 PM [facility] Platelet Count 257 150 - 420 x10E9/L 08/28/2024 12:36 PM [facility] MPV 9.9 7.8 - 11.4 fL 08/28/2024 12:36 PM [facility] Neutrophil % 73.2 41.0 - 74.0 % 08/28/2024 12:36 PM [facility] Lymphocyte % 16.7(L) 17.0 - 47.0 % 08/28/2024 12:36 PM [facility] Monocyte % 8.6 3.0 - 11.0 % 08/28/2024 12:36 PM [facility] Eosinophil % 0.7 0.0 - 7.0 % 08/28/2024 12:36 PM [facility] Basophil % 0.3 0.0 - 1.6 % 08/28/2024 12:36 PM [facility] Immature Granulocytes % 0.5 0.0 - 1.0 % 08/28/2024 12:36 PM [facility] Neutrophil Absolute 7.53(H) 1.60 - 7.50 x10E9/L 08/28/2024 12:36 PM [facility] Lymphocyte Absolute 1.71 1.00 - 4.40 x10E9/L 08/28/2024 12:36 PM [facility] Monocyte Absolute 0.88 0.15 - 1.00 x10E9/L 08/28/2024 12:36 PM [facility] Eosinophil Absolute 0.07 0.00 - 0.60 x10E9/L 08/28/2024 12:36 PM [facility] Basophil Absolute 0.03 0.00 - 0.13 x10E9/L 08/28/2024 12:36 PM [facility] Blood BLOOD SPECIMEN / Unknown Venipuncture / Unknown 08/28/2024 12:21 PM [employer]UC[employer] TEACHER 08/28/2024 12:30 PM AD[employer]URE EDUCATION TEACHER James Casillas MD LAB - HEMATOLOGY O RDERABLES Performing Organization Address City/State/[facility] Co de Phone Number [facility] [address] [place] [address], [facility] [phone] * ALCOHOL ETHYL BLOOD (08/28/2024 12:21 PM ADVENTURE EDUCATION TEACHER) Ethanol (mg/dL) <10 <10 mg/dL 12:57 [address] ADVENTURE EDUCATION TE[employer]ER [facility] Ethanol Calculated (g/dL) <0.010 <=0.010 g/dL 08/28/2024 12:57 [address] ADVENTURE EDUC[employer] TE[employer]ER [facility] Blood BLOOD SPECIMEN / Unknown Venipuncture / Unknown 08/28/2024 12:21 PM ADVENTURE EDUCATION TEACHER 08/28/2024 12:30 PM ADVENTURE EDUCATION TEACHER Narrative [facility] - 08/28/2024 12:57 PM ADVENTURE EDUCATION TEACHER Ethanol Interp <10: None Detected. Depression of MICROPHONE OPERATOR: >100 mg/dl Potentially Critical: >250 mg/dl Potentially Fatal >400 mg/dl Ethanol in the patient's blood will contribute to the osmolar gap. Ethanol's contribution to the osmolar gap can be estimated by dividing the concentration of ethanol in mg/dL by 4.6. This test is for clinical use only and does not equal a LATISHA for legal purposes. James Casillas MD LAB - CHEMISTRY OR DERABLES Performing Organization Address [facility] [place]/[facility] Co de Phone Number [address] [id number] [place] [address], [facility] [phone] from Last 3 Months Advance Directives * Full Code (Latest Code Status on File) Date Activated Date Inactivated Comments 08/28/2024 3:19 PM 08/29/2024 4:52 PM Care Teams Developmental Psychologist Relationship Specialty Start Date End Date Jesus Dias MD PCP - General Internal Medicine 08/06/15 [place] [id number] [id number] Orthopedic Surgery 08/10/15
--- OUTSIDE RECORDS SUMMARY | 2024-10-25 01:42 | XMS_ITS | Encounter Summary ---
Author Organization [facility] Address [address] [place] [address] Care Team Providers Care Negative Turner Apprentice Name Role Phone Unavailable Primary Care Provider Unavailabl e Encounter Details Date Type Department Care Team (Late st Contact Info) Description 10/22/2024 External Device Data [facility] ABSTRACTION Provider, Abstract NO ADDRESS ON FILE Social History Tobacco Use Types Packs/Day Years Used Date Smoking Tobacco: Never Assessed Sex and Gender Information Value Date Recorded Sex Assigned at Not on file Legal Sex Male 7:53 PM CANDY SPREADER Gender Identity Not on file Sexual Orientation Not on file documented as of this encounter Plan of Treatment Not on file documented as of this encounter Visit Diagnoses Not on filedocumented in this encounter
--- OUTSIDE RECORDS SUMMARY | 2024-10-25 01:42 | XMS_ITS | Clinical Summary ---
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
--- OUTSIDE RECORDS SUMMARY | 2024-10-25 01:42 | XMS_ITS | Patient Health Summary ---
Author Organization [facility] Address [address] [place] [address] Care Team Providers Care Dumper Bailer Operator Name Role Phone Jesus Dias MD Primary Care Provider Hailey ESTEVES MD, Cristiano Unavailable [phone] Note from [facility],non-owned Affiliates and Associated Physician Practices is amultiple site organization consisting of ambulatory clinics and hospital sitesin [place], [place], [place] and [place]. This disclosure is being madepursuant to the Care Everywhere program and may not contain all information available regarding this patient. Last updated 18.[facility] Allergies No known active allergies Medications * Be aware that medications may not be up to date on this document. Alwaysverify current medications with the patient. * finasteride (Proscar) 5 MG tablet Take 1 (one) tablet by mouth every 2 days * atorvastatin (Lipitor) 20 MG tablet Take 1 (one) tablet by mouth once daily * lisinopril-hydroCHLOROthiazide (Prinzide; Zestoretic) 10-12.5 MG tablet Take 1 (one) tablet by mouth once daily * fluticasone propionate (Flonase) 50 MCG/ACT nasal spray(Started 08/29/2024) Walker 2 (two) sprays into each nostril once daily * loratadine (Claritin) 10 MG tablet(Started 08/29/2024) Take 1 (one) tablet by mouth once daily * vitamin D3 (Cholecalciferol) 25 MCG (1000 UNITS) tablet(Started 08/29/2024) Take 1 (one) tablet by mouth once daily * oxyCODONE, immediate release, (Roxicodone) 5 MG tablet(Started 08/29/2024) Take 0.5 (one-half) tablet by mouth every 6 hours as needed for Pain Active Problems Problem Noted Date Diagnosed Date Fx dorsal vertebra-closed 08/28/2024 Multiple closed fractures of ribs of right side 08/28/2024 Fall, initial encounter 08/28/2024 Other closed fracture of tho racic vertebra, unspecified thoracic vertebral level, initial encounter 08/28/2024 Calculus of gallbladder with out cholecystitis without obstruction 08/28/2024 Closed fracture of multiple ribs of right side, initial encounter 08/28/2024 Social History Tobacco Use Types Packs/Day Years [...] Comments Blood Pressure 137/62 08/29/2024 11:31 AM [facility] Pulse 73 08/29/2024 11:31 AM [facility] Temperature 36.4 ??C (97.5 ??F) 08/29/2024 11:[address] Respiratory Rate 20 08/29/2024 11:31 AM [facility] Oxygen Saturation 95% 08/29/2024 11:31 AM [facility] Inhaled Oxygen Concentration - - Weight 71.7 kg (158 lb) 10/14/2024 2:46 PM [facility] Height 180.3 cm (5' 11 ) 08/28/2024 12:13 PM [facility] Body Mass Index 22.04 08/28/2024 12:13 PM [facility] Procedures * XR LUMBAR SPINE 2 OR 3VW(Performed 10/14/2024) Performed for Low back pain, unspecified back pain laterality, unspecified chronicity, unspecified whether sciatica present * PHOSPHORUS BLOOD(Performed 08/29/2024) * MAGNESIUM BLOOD(Performed 08/29/2024) * BASIC METABOLIC PANEL (CALCIUM TOTAL)(Performed 08/29/2024) * CBC W/O DIFFERENTIAL(Performed 08/29/2024) * XR CHEST 1VW PORTABLE(Performed 08/29/2024) Performed for Fall, initial encounter * SARS-COV-2 (COVID-19) RAPID(Performed 08/28/2024) Performed for Fall, initial encounter * PT EVAL AND TREAT(Performed 08/28/2024) * OT EVAL AND TREAT(Performed 08/28/2024) * XR LUMBAR SPINE 2 OR 3VW(Performed 08/28/2024) Performed for Fall, initial encounter * URINE DRUG SCREEN IMMUNOASSAY(Performed 08/28/2024) * CT LUMBAR SPINE WO CONTRAST(Performed 08/28/2024) Performed for Fall, initial encounter * CT THORACIC SPINE WO CONTRAST(Performed 08/28/2024) Performed for Fall, initial encounter * CT CHEST ABDOMEN PELVIS W CONT(Performed 08/28/2024) Performed for Fall, initial encounter * CT CERVICAL SPINE WO CONTRAST(Performed 08/28/2024) Performed for Fall, initial encounter * CT HEAD WO CONTRAST(Performed 08/28/2024) Performed for Fall, initial encounter * BLOOD TYPE VERIFICATION(Performed 08/28/2024) * XR CHEST 1VW PORTABLE(Performed 08/28/2024) Performed for Fall, initial encounter * TYPE + SCREEN PANEL(Performed 08/28/2024) * PT-INR [facility](Performed 08/28/2024) * CBC W AUTO DIFFERENTIAL(Performed 08/28/2024) * BASIC METABOLIC PANEL (CALCIUM TOTAL)(Performed 08/28/2024) * ALCOHOL ETHYL BLOOD(Performed 08/28/2024) * XR PELVIS 1 OR 2VW(Performed 08/10/2015) Performed for Left hip pain Results * XR Lumbar Spine 2 or 3Vw (10/14/2024 2:43 PM [facility]) Only the most recent of2 resultswithin the time period is included. Anatomical Region Laterality Modality Spine Computed Radiogr aphy 10/14/2024 2:47 PM [facility] Impressions 10/14/2024 3:01 PM [facility] IMPRESSION: 1.No acute fracture or malalignment identified. 2.Multilevel degenerative changes of the lumbar spine. 3.L1 vertebral body lesion compatible with a hemangioma. Report dictated by Walt Maddox MD (vice president of talent acquisition). I, Rory Almonte MD have personally reviewed and interpreted this examination/study. > Interpreting Provider: Rory Almonte MD on 10/14/2024 3:01 PM Narrative 10/14/2024 3:01 PM [facility] PROCEDURE: ??XR LUMBAR SPINE 2 OR 3VW, DATE/TIME OF EXAM: ??10/14/2024 2:44 PM, LOCATION ??[facility] INDICATION: M54.50: Low back pain, unspecified [...] DATE/TIME OF EXAM: 10/14/2024 2:44 PM, LOCATION [facility] INDICATION: M54.50: Low back pain, unspecified [...] by Walt Maddox MD (vice president of talent acquisition). I, Rory Almonte MD have personally reviewed and interpreted this examination/study. > Interpreting Provider: Rory Almonte MD on 10/14/2024 3:01 PM Julia Amezquita PA-C DIAGNOSTIC IMAGING ORDERABLES * CBC W/O DIFFERENTIAL (08/29/2024 4:38 AM [facility]) WBC 9.5 4.0 - 10.7 x10E9/L 08/29/2024 5:18 AM [facility] RBC Count 4.64 4.30 - 5.80 x10E12/L 08/29/2024 5:18 AM [facility] Hemoglobin 14.2 13.3 - 17.5 g/dL 08/29/2024 5:18 AM [facility] Hematocrit 41.7 38.7 - 51.1 % 08/29/2024 5:18 AM [facility] MCV 89.9 80.0 - 98.0 fL 08/29/2024 5:18 AM [facility] MCH 30.6 26.7 - 33.6 pg 08/29/2024 5:18 AM [facility] MCHC 34.1 31.7 - 36.3 g/dL 08/29/2024 5:18 AM [facility] RDW-CV 12.9 11.3 - 14.8 % 08/29/2024 5:18 AM [facility] Platelet Count 298 150 - 420 x10E9/L 08/29/2024 5:18 AM [facility] MPV 10.2 7.8 - 11.4 fL 08/29/2024 5:18 AM [facility] Blood BLOOD SPECIMEN / Unknown Lab Venipuncture / Unknown 08/29/2024 4:38 AM [facility] 08/29/2024 5:14 AM [facility] Chris Rodas MD LAB - HEMATOLOGY OR DERABLES [facility] [address] [place] [id number], [facility] [phone] * (ABNORMAL) BASIC METABOLIC PANEL (CALCIUM TOTAL) (08/29/2024 4:38 AM [facility]) Only the most recent of2 resultswithin the time period is included. Pathologist [facility] BUN 17 7 - 26 mg/dL 08/29/2024 5:52 AM [facility] Creatinine 1.11 0.71 - 1.16 mg/dL 08/29/2024 5:52 AM [facility] Sodium 137 136 - 145 mmol/L 08/29/2024 5:52 AM [facility] Potassium 4.5 3.5 - 4.5 mmol/L 08/29/2024 5:52 AM [facility] Chloride 103 98 - 107 mmol/L 08/29/2024 5:52 AM [facility] CO2 23 22 - 29 mmol/L 08/29/2024 5:52 AM [facility] Glucose 95 70 - 99 mg/dL 08/29/2024 5:52 AM [facility] Calcium 9.0 8.4 - 10.2 mg/dL 08/29/2024 5:52 AM [facility] Anion Gap 11 6 - 16 08/29/2024 5:52 AM [facility] BUN/Creatinine Ratio 15 7 - 23 08/29/2024 5:52 AM [facility] Osmolality Calculated 285 275 - 295 mOsm/kg 08/29/2024 5:52 AM [facility] eGFR by CKD-EPI 68(L) >=90 mL/min/1.7 3 m2 08/29/2024 5:52 AM [facility] Blood BLOOD SPECIMEN / Unknown Lab Venipuncture / Unknown 08/29/2024 4:38 AM [facility] 08/29/2024 5:14 AM [facility] Chris Rodas MD LAB - CHEMISTRY ORD ERABLES [facility] [address] [place] [address], [facility] [phone] * PHOSPHORUS BLOOD (08/29/2024 4:38 AM [facility]) Phosphorus 4.2 2.8 - 5.1 mg/dL 08/29/2024 5:52 AM [facility] Blood BLOOD SPECIMEN / Unknown Lab Venipuncture / Unknown 08/29/2024 4:38 AM [facility] 08/29/2024 5:14 AM [facility] Chris Rodas MD LAB - CHEMISTRY ORD ERABLES [address] [address], [place] [phone] * MAGNESIUM BLOOD (08/29/2024 4:38 AM [facility]) Magnesium 2.1 1.6 - 2.6 mg/dL 08/29/2024 5:52 AM [facility] Blood BLOOD SPECIMEN / Unknown Lab Venipuncture / Unknown 08/29/2024 4:38 AM [facility] 08/29/2024 5:14 AM [facility] Chris Rodas MD LAB - CHEMISTRY ORD ERABLES Performing Organization Address City/[facility]/ZIP Co de Phone Number [address] [address], [place] [phone] * XR CHEST 1VW PORTABLE (08/29/2024 4:14 AM [facility]) Only the most recent of2 resultswithin the time period is included. Anatomical Region Laterality Modality Chest Digital Radiogra phy 08/29/2024 9:47 PM [facility] Impressions 08/29/2024 9:49 PM [facility] IMPRESSION: Stable cardiomediastinal silhouette. Atherosclerotic aorta. Low lung volumes. Mild bibasilar atelectasis. No large pleural effusion or pneumothorax. > Interpreting Provider: Travis Donis MD on 08/29/2024 9:49 PM Narrative 08/29/2024 9:49 PM [facility] PROCEDURE: ??XR CHEST 1VW PORTABLE DATE/TIME OF [...] (ABNORMAL) SARS-COV-2 (COVID-19) RAPID (08/28/2024 4:00 PM [facility]) COVID-19 PCR Detected( A) Not detected 08/28/2024 4:51 PM [facility] Microbiology SPECIMEN FROM NASOPHARYNGEAL STRUCTURE / Unknown Collection / Unknown 08/28/2024 4:00 PM [facility] 08/28/2024 4:08 PM [facility] Narrative [facility] - 08/28/2024 4:51 PM [facility] The Cepheid Xpert Xpress SARS-COV-2 has been authorized by [...] Estrella MD LAB - MICROBIOLOGY O RDERABLES [facility] [address] [place] [id number] [phone] * (ABNORMAL) URINE DRUG SCREEN IMMUNOASSAY (08/28/2024 12:52 PM [facility]) [facility] Signature Amphetamines Screen Urine Negative Negative : < 1000 ng/mL 08/28/2024 1:27 PM [facility] Barbiturates Screen Urine Negative Negative : < 200 ng/mL 08/28/2024 1:27 PM [facility] Benzodiazepine Screen Urine Negative Negative : < 200 ng/mL 08/28/2024 1:27 PM [facility] Opiates Urine Positive(A) Negative : < 300 ng/mL 08/28/2024 1:27 PM [facility] Comment:Positive urine opiat e screening results should be confirmed by another generally accepted non-immunological method such as gas chromatography or mass spectrometry. Cocaine Metabolites Urine Negative Negative : < 300 ng/mL 08/28/2024 1:27 PM [facility] Phencyclidine Screen Urine Negative Negative : < 25 ng/ml 08/28/2024 1:27 PM [facility] Cannabinoids Screen Urine Negative Negative : <50 ng/mL 08/28/2024 1:27 PM [facility] Methadone Screen Urine Negative Negative : < 300 ng/mL 08/28/2024 1:27 PM [facility] Fentanyl Screen Urine Negative Negative : <1.5 ng/mL 08/28/2024 1:27 PM [facility] Urine URINE / Unknown Collection / Unknown 08/28/2024 12:52 PM [facility] 08/28/2024 12:55 PM [facility] - 08/28/2024 1:27 PM [facility] The Urine Toxicology Screening Panel does not screen for Propoxyphene, Meprobamate, Carisoprodol, Trazodone, rlvj-nlz-avlnnxn medications and/or volatiles (Acetone, Isopropanol, Methanol or Ethylene Glycol). Ethanol, Salicylate, Acetaminophen, Tricyclic Antidepressants and several therapeutic drugs may be individually assayed in serum or plasma specimen. Toxicology testing by the [facility] is an aid to medical diagnosis and treatment of patients. No documented chain of custody was maintained. Results are intended to be used for clinical purposes only. ? James Casillas MD LAB - URINE CHEMIS TRY ORDERABLES Performing Organization Address City/State/[facility] Co de Phone Number [id number] [place] [address], [facility] [phone] * CT CHEST ABDOMEN PELVIS W CONT - Abdomen-pelvis trauma, blunt or penetrating (08/28/2024 12:41 PM [facility]) Anatomical Region Laterality Modality Chest, Abdomen, Pelvis Computed Tomography 08/28/2024 12:4 8 PM [facility] Impressions 08/28/2024 1:04 PM [facility] IMPRESSION: Minimally displaced fracture of the right [...] 08/28/2024 1:04 PM Narrative 08/28/2024 1:04 PM [facility] PROCEDURE: ??CT CHEST ABDOMEN PELVIS W CONT [...] T/L-spine trauma, Spine fracture (08/28/2024 12:41 PM [facility]) Anatomical Region Laterality Modality Spine Computed Tomogra phy 08/28/2024 12:5 7 PM [facility] Impressions 08/28/2024 1:50 PM [facility] IMPRESSION: 1. No evidence of acute fracture in the thoracic spine. 2. Mildly displaced acute fractures of the right L1, L2 and L3 transverse processes. > Interpreting Provider: Barak Alcaraz MD on 08/28/2024 1:50 PM Narrative 08/28/2024 1:50 PM [facility] PROCEDURE: ??CT THORACIC SPINE WO CONTRAST, CT LUMBAR SPINE WO CONTRAST, DATE/TIME OF EXAM: ??08/28/2024 12:42 PM, LOCATION ??[facility] INDICATION: Trauma ADDITIONAL CLINICAL INFORMATION: Ordering [...] DATE/TIME OF EXAM: 08/28/2024 12:42 PM, LOCATION [facility] INDICATION: Trauma ADDITIONAL CLINICAL INFORMATION: Ordering [...] fractures of the right L1, L2 and [id number] processes. > Interpreting Provider: Barak Alcaraz MD on 08/28/2024 1:50 PM James Casillas MD CT ORDERABLES * CT THORACIC SPINE WO CONTRAST - T/L-spine trauma, spine fracture (08/28/2024 12:41 PM [facility]) Anatomical Region Laterality Modality Spine Computed Tomogra phy 08/28/2024 12:5 7 PM [facility] Impressions 08/28/2024 1:50 PM [facility] IMPRESSION: 1. No evidence of acute fracture in the thoracic spine. 2. Mildly displaced acute fractures of the right L1, L2 and L3 transverse processes. > Interpreting Provider: Barak Alcaraz MD on 08/28/2024 1:50 PM Narrative 08/28/2024 1:50 PM [facility] PROCEDURE: ??CT THORACIC SPINE WO CONTRAST, CT LUMBAR SPINE WO CONTRAST, DATE/TIME OF EXAM: ??08/28/2024 12:42 PM, LOCATION ??[facility] INDICATION: Trauma ADDITIONAL CLINICAL INFORMATION: Ordering [...] DATE/TIME OF EXAM: 08/28/2024 12:42 PM, LOCATION [facility] INDICATION: Trauma ADDITIONAL CLINICAL INFORMATION: Ordering [...] fractures of the right L1, L2 and [id number] processes. > Interpreting Provider: Barak Alcaraz MD on 08/28/2024 1:50 PM James Casillas MD CT ORDERABLES * CT CERVICAL SPINE WO CONTRAST - C-Spine Trauma, Spine fracture (08/28/2024 12:41 PM [facility]) Anatomical Region Laterality Modality Spine Computed Tomogra phy 08/28/2024 12:4 2 PM [facility] Impressions 08/28/2024 12:57 PM [facility] IMPRESSION: 1. No acute intracranial process. 2. No evidence of acute fracture in the cervical spine. > Interpreting Provider: Barak Alcaraz MD on 08/28/2024 12:57 PM Narrative 08/28/2024 12:57 PM [facility] PROCEDURE: ??CT HEAD WO CONTRAST, CT CERVICAL SPINE WO CONTRAST, DATE/TIME OF EXAM: ??08/28/2024 12:42 PM, LOCATION ??[facility] INDICATION: Trauma ADDITIONAL CLINICAL INFORMATION: Ordering [...] CONTRAST,DATE/TIME OF EXAM: 08/28/2024 12:42 PM, LOCATION [facility] INDICATION: Trauma ADDITIONAL CLINICAL INFORMATION: Ordering [...] leak, mental status changes (08/28/2024 12:41 PM [facility]) Anatomical Region Laterality Modality Head Computed Tomogra phy 08/28/2024 12:4 2 PM [facility] Impressions 08/28/2024 12:57 PM [facility] IMPRESSION: 1. No acute intracranial process. 2. No evidence of acute fracture in the cervical spine. > Interpreting Provider: Barak Alcaraz MD on 08/28/2024 12:57 PM Narrative 08/28/2024 12:57 PM [facility] PROCEDURE: ??CT HEAD WO CONTRAST, CT CERVICAL SPINE WO CONTRAST, DATE/TIME OF EXAM: ??08/28/2024 12:42 PM, LOCATION ??[facility] INDICATION: Trauma ADDITIONAL CLINICAL INFORMATION: Ordering [...] CONTRAST,DATE/TIME OF EXAM: 08/28/2024 12:42 PM, LOCATION [facility] INDICATION: Trauma ADDITIONAL CLINICAL INFORMATION: Ordering [...] * BLOOD TYPE VERIFICATION (08/28/2024 12:36 PM [facility]) ABO Rh A POS 08/28/2024 1:1 1 PM [facility] Blood Bank BLOOD SPECIMEN / Unknown Venipuncture / Unknown 08/28/2024 12:36 PM [facility] 08/28/2024 12:41 PM [facility] James Casillas MD LAB - BLOOD BANK O RDERABLES [facility] LAB [address] [place] [address], [facility] [phone] * PT-INR [facility] (08/28/2024 12:21 PM [facility]) PT 14.7 12.1 - 14.8 Seconds 08/28/2024 1:01 PM [facility] INR 1.1 See Comment 08/28/2024 1:01 PM [facility] Comment:The suggested therap eutic range for standard coumadin (warfarin) therapy is an INR of 2.0-3.0. For high-risk patients (Mechanical Mitral Valve Prosthesis, etc.), the suggested prophylactic therapeutic range is an INR of 2.5-3.5. Blood BLOOD SPECIMEN / Unknown Venipuncture / Unknown 08/28/2024 12:21 PM [facility] 08/28/2024 12:24 PM [facility] James Casillas MD LAB - COAGULATION ORDERABLES [facility] [address] [place] [address], [facility] [phone] * TYPE + SCREEN PANEL (08/28/2024 12:21 PM [facility]) Pathologist [facility] Antibody Screen NEG 1:03 PM [facility] LAB ABO Rh A POS 08/28/2024 1:03 PM [facility] Blood Bank BLOOD SPECIMEN / Unknown Venipuncture / Unknown 08/28/2024 12:21 PM [facility] 08/28/2024 12:25 PM [facility] James Casillas MD LAB - BLOOD BANK O RDERABLES Performing Organization Address City/[facility]/ZIP Co de Phone Number [facility] [address] [place] [address], [facility] [phone] * (ABNORMAL) CBC W AUTO DIFFERENTIAL (08/28/2024 12:21 PM [facility]) WBC 10.3 4.0 - 10.7 x10E9/L 08/28/2024 12:36 PM [facility] RBC Count 4.41 4.30 - 5.80 x10E12/L 08/28/2024 12:36 PM [facility] Hemoglobin 13.6 13.3 - 17.5 g/dL 08/28/2024 12:36 PM [facility] Hematocrit 39.2 38.7 - 51.1 % 08/28/2024 12:36 PM [facility] MCV 88.9 80.0 - 98.0 fL 08/28/2024 12:36 PM [facility] MCH 30.8 26.7 - 33.6 pg 08/28/2024 12:36 PM [facility] MCHC 34.7 31.7 - 36.3 g/dL 08/28/2024 12:36 PM [facility] RDW-CV 12.9 11.3 - 14.8 % 08/28/2024 12:36 PM [facility] Platelet Count 257 150 - 420 x10E9/L 08/28/2024 12:36 PM [facility] MPV 9.9 7.8 - 11.4 fL 08/28/2024 12:36 PM [facility] Neutrophil % 73.2 41.0 - 74.0 % 08/28/2024 12:36 PM [facility] Lymphocyte % 16.7(L) 17.0 - 47.0 % 08/28/2024 12:36 PM [facility] Monocyte % 8.6 3.0 - 11.0 % 08/28/2024 12:36 PM [facility] Eosinophil % 0.7 0.0 - 7.0 % 08/28/2024 12:36 PM [facility] Basophil % 0.3 0.0 - 1.6 % 08/28/2024 12:36 PM [facility] Immature Granulocytes % 0.5 0.0 - 1.0 % 08/28/2024 12:36 PM [facility] Neutrophil Absolute 7.53(H) 1.60 - 7.50 x10E9/L 08/28/2024 12:36 PM [facility] Lymphocyte Absolute 1.71 1.00 - 4.40 x10E9/L 08/28/2024 12:36 PM [facility] Monocyte Absolute 0.88 0.15 - 1.00 x10E9/L 08/28/2024 12:36 PM [facility] Eosinophil Absolute 0.07 0.00 - 0.60 x10E9/L 08/28/2024 12:36 PM [facility] Basophil Absolute 0.03 0.00 - 0.13 x10E9/L 08/28/2024 12:36 PM [facility] Blood BLOOD SPECIMEN / Unknown Venipuncture / Unknown 08/28/2024 12:21 PM [facility] 08/28/2024 12:30 PM [facility] James Casillas MD LAB - HEMATOLOGY O RDERABLES Performing Organization Address [facility]/ZIP Co de Phone Number [address] [address], [facility] [phone] * ALCOHOL ETHYL BLOOD (08/28/2024 12:21 PM [facility]) Ethanol (mg/dL) <10 <10 mg/dL 12:57 PM [facility] Ethanol Calculated (g/dL) <0.010 <=0.010 g/dL 08/28/2024 12:57 PM [facility] Blood BLOOD SPECIMEN / Unknown Venipuncture / Unknown 08/28/2024 12:21 PM [facility] 08/28/2024 12:30 PM [facility] Narrative [facility] - 08/28/2024 12:57 PM [facility] Ethanol Interp <10: None Detected. Depression of OVERLOCK ELASTIC ATTACHER: >100 mg/dl Potentially Critical: >250 mg/dl Potentially [...] - CHEMISTRY OR DERABLES Performing Organization Address [facility]/ZIP Co de Phone Number [address] [address], [facility] [phone] * XR PELVIS 1 OR 2 VW (08/10/2015 2:55 PM [facility]) Anatomical Region Laterality Modality Pelvis Radiographic Sandy ging Narrative 08/19/2015 8:58 AM [facility] Keely Arizmendi, RT(R) ? 08/19/2015 ??8:58 AM See progress notes for results Cristiano Hart IV, MD DIAGNOSTIC IMAGING [facility] Care Teams Dumper Bailer Operator Relationship Specialty Start Date End Date Jesus Dias MD PCP - General Internal Medicine 08/06/15 [place] [id number] [facility] [address] [place] [id number] Orthopedic Surgery 08/10/15
--- OUTSIDE RECORDS SUMMARY | 2024-10-25 01:42 | XMS_ITS | Referral Summary ---
Author Organization [facility] Address [address] [facility] [place] [address] Care Team Providers Care Hearing Stenographer Name Role Phone Jesus Dias MD Primary Care Provider Hailey ESTEVES MD, Cristiano Unavailable [phone] Source Comments [facility],non-owned Affiliates and Associated Physician Practices is amultiple site organization consisting of ambulatory clinics and hospital sitesin [place], [place], [place] and [place]. This disclosure is being madepursuant to the Care Everywhere program and may not contain all information available regarding this patient. Last updated 18.[facility] Encounters Date Type Department Care Team Description 10/14/2024 2:29 PM INSURANCE SALES EXECUTIVE - 10/14/2024 11:59 PM INSURANCE SALES EXECUTIVE Hospital Encounter [facility] [address] [facility] [place] [address] Julia Amezquita PA-C Discharge Disposition: Home or Self Care 10/14/2024 Travel 10/14/2024 2:00 PM INSURANCE SALES EXECUTIVE Office Visit [facility] [address] [place] [phone] Julia Amezquita PA-C Closed fracture of transverse process of lumbar vertebra with routine healing, subsequent encounter (Primary Dx) 10/03/2024 Orders Only [facility] [address] [place] [phone] Julia Amezquita PA-C Low back pain, unspecified back pain laterality, unspecified chronicity, unspecified whether sciatica present 09/12/2024 Telephone [facility] [address] [facility] [place] [phone] Agatha Mayo RN Question 08/28/2024 12:10 PM INSURANCE SALES EXECUTIVE - 08/29/2024 3:52 PM INSURANCE SALES EXECUTIVE Emergency [facility] [address] [place] [address] James Casillas MD Yogendran, Rajiv L, MD Culhane, John T, MD Emergency Medicine Discharge Disposition: Home or Self Care 08/28/2024 Travel from Last 3 Months Allergies No known active allergies Medications * [...] fluticasone propionate (Flonase) 50 MCG/ACT nasal spray [place] 2 (two) sprays into each nostril once [...] Comments Blood Pressure 137/62 08/29/2024 11:31 AM INSURANCE SALES EXECUTIVE Pulse 73 08/29/2024 11:31 AM INSURANCE SALES EXECUTIVE Temperature 36.4 ??C (97.5 ??F) 08/29/2024 11:[address] Respiratory Rate 20 08/29/2024 11:31 AM INSURANCE SALES EXECUTIVE Oxygen Saturation 95% 08/29/2024 11:31 AM INSURANCE SALES EXECUTIVE Inhaled Oxygen Concentration - - Weight 71.7 kg (158 lb) 10/14/2024 2:46 PM INSURANCE SALES EXECUTIVE Height 180.3 cm (5' 11 ) 08/28/2024 12:13 PM INSURANCE SALES EXECUTIVE Body Mass Index 22.04 08/28/2024 12:13 PM INSURANCE SALES EXECUTIVE Functional Status Functional Status Response Date of Assess ment Is person deaf or have serious hearing difficult y? No 08/29/2024 Is person blind or have serious difficulty seein g? No 08/29/2024 Does person have serious dif ficulty walking/climbing stairs? No 08/29/2024 Does person have difficulty doing errands alone? No 08/29/2024 Cognitive Status Response Date of Assessm ent Does person have difficulty concentrating/remembering/making decisions? No 08/29/2024 Plan of Treatment Not on file Procedures Procedure Name Priority Date/Time Associated Diagnosis Comments XR LUMBAR SPINE 2 OR 3VW Routine 10/14/2024 2:43 PM INSURANCE SALES EXECUTIVE Low back pain, unspecified back pain laterality, unspecified chronicity, unspecified whether sciatica present PHOSPHORUS BLOOD Routine 08/29/2024 4:38 AM INSURANCE SALES EXECUTIVE MAGNESIUM BLOOD Routine 08/29/2024 4:38 AM INSURANCE SALES EXECUTIVE BASIC METABOLIC PANEL (CALCIUM TOTAL) Routine 08/29/2024 4:38 AM INSURANCE SALES EXECUTIVE CBC W/O DIFFERENTIAL Routine 08/29/2024 4:38 AM INSURANCE SALES EXECUTIVE XR CHEST 1VW PORTABLE Routine 08/29/2024 4:14 AM INSURANCE SALES EXECUTIVE Fall, initial encounter SARS-COV-2 (COVID-19) RAPID STAT 08/28/2024 4:00 PM INSURANCE SALES EXECUTIVE Fall, initial encounter PT EVAL AND TREAT Routine 08/28/2024 3:1 9 PM INSURANCE SALES EXECUTIVE OT EVAL AND TREAT Routine 08/28/2024 3:1 9 PM INSURANCE SALES EXECUTIVE XR LUMBAR SPINE 2 OR 3VW STAT 08/28/2024 1:09 PM INSURANCE SALES EXECUTIVE Fall, initial encounter URINE DRUG SCREEN IMMUNOASSAY STAT 08/28/2024 12:[address]ES [address] LUMBAR SPINE WO CONTRAST STAT 08/28/2024 12:41 PM INSURANCE SALES EXECUTIVE Fall, initial encounter CT THORACIC SPINE WO CONTRAST STAT 08/28/2024 12:41 PM INSURANCE SALES EXECUTIVE Fall, initial encounter CT CHEST ABDOMEN PELVIS W CONT STAT 08/28/2024 12:41 PM INSURANCE SALES EXECUTIVE Fall, initial encounter CT CERVICAL SPINE WO CONTRAST STAT 08/28/2024 12:41 PM INSURANCE SALES EXECUTIVE Fall, initial encounter CT HEAD WO CONTRAST STAT 08/28/2024 1 2:41 PM INSURANCE SALES EXECUTIVE Fall, initial encounter BLOOD TYPE VERIFICATION STAT 08/28/2024 12:36 PM INSURANCE SALES EXECUTIVE XR CHEST 1VW PORTABLE STAT 08/28/2024 12:25 PM INSURANCE SALES EXECUTIVE Fall, initial encounter TYPE + SCREEN PANEL STAT 08/28/2024 1 2:21 PM INSURANCE SALES EXECUTIVE PT-INR [facility] STAT 08/28/2024 12:21 PM INSURANCE SALES EXECUTIVE CBC W AUTO DIFFERENTIAL STAT 08/28/2024 12:21 PM INSURANCE SALES EXECUTIVE BASIC METABOLIC PANEL (CALCIUM TOTAL) STAT 08/28/2024 12:21 PM INSURANCE SALES EXECUTIVE ALCOHOL ETHYL BLOOD STAT 08/28/2024 1 2:21 PM INSURANCE SALES EXECUTIVE from Last 3 Months Results * XR Lumbar Spine 2 or 3Vw (10/14/2024 2:43 PM INSURANCE SALES EXECUTIVE) Only the most recent of2 resultswithin the time period is included. Anatomical Region Laterality Modality Spine Computed Radiogr aphy 10/14/2024 2:47 PM INSURANCE SALES EXECUTIVE Impressions 10/14/2024 3:01 PM INSURANCE SALES EXECUTIVE IMPRESSION: 1.No acute fracture or malalignment identified. 2.Multilevel degenerative changes of the lumbar spine. 3.L1 vertebral body lesion compatible with a hemangioma. Report dictated by Walt Maddox MD (enrollment services vice president). I, Rory Almonte MD have personally reviewed and interpreted this examination/study. > Interpreting Provider: Rory Almonte MD on 10/14/2024 3:01 PM Narrative 10/14/2024 3:01 PM INSURANCE SALES EXECUTIVE PROCEDURE: ??XR LUMBAR SPINE 2 OR 3VW, DATE/TIME OF EXAM: ??10/14/2024 2:44 PM, LOCATION ??[facility] INDICATION: M54.50: Low back pain, unspecified [...] DATE/TIME OF EXAM: 10/14/2024 2:44 PM, LOCATION [facility] INDICATION: M54.50: Low back pain, unspecified [...] hemangioma. Report dictated by Walt Maddox MD (enrollment services vice president). I, Rory Almonte MD have personally reviewed and interpreted this examination/study. > Interpreting Provider: Rory Almonte MD on 10/14/2024 3:01 PM Julia Amezquita PA-C DIAGNOSTIC IMAGING ORDERABLES * CBC W/O DIFFERENTIAL (08/29/2024 4:38 AM INSURANCE SALES EXECUTIVE) WBC 9.5 4.0 - 10.7 x10E9/L 08/29/2024 5:18 AM [facility] RBC Count 4.64 4.30 - 5.80 x10E12/L 08/29/2024 5:18 AM [facility] Hemoglobin 14.2 13.3 - 17.5 g/dL 08/29/2024 5:18 AM [facility] Hematocrit 41.7 38.7 - 51.1 % 08/29/2024 5:18 AM [facility] MCV 89.9 80.0 - 98.0 fL 08/29/2024 5:18 AM [facility] MCH 30.6 26.7 - 33.6 pg 08/29/2024 5:18 AM [facility] MCHC 34.1 31.7 - 36.3 g/dL 08/29/2024 5:18 AM [facility] RDW-CV 12.9 11.3 - 14.8 % 08/29/2024 5:18 AM [facility] Platelet Count 298 150 - 420 x10E9/L 08/29/2024 5:18 AM [facility] MPV 10.2 7.8 - 11.4 fL 08/29/2024 5:18 AM [facility] Blood BLOOD SPECIMEN / Unknown Lab Venipuncture / Unknown 08/29/2024 4:38 AM INSURANCE SALES EXECUTIVE 08/29/2024 5:14 AM INSURANCE SALES EXECUTIVE Chris Rodas MD LAB - HEMATOLOGY OR DERABLES [facility] [address] [place] [address], [facility] [phone] * (ABNORMAL) BASIC METABOLIC PANEL (CALCIUM TOTAL) (08/29/2024 4:38 AM INSURANCE SALES EXECUTIVE) Only the most recent of2 resultswithin the time period is included. BUN 17 7 - 26 mg/dL 08/29/2024 5:52 AM [facility] Creatinine 1.11 0.71 - 1.16 mg/dL 08/29/2024 5:52 AM [facility] Sodium 137 136 - 145 mmol/L 08/29/2024 5:52 AM [facility] Potassium 4.5 3.5 - 4.5 mmol/L 08/29/2024 5:52 AM [facility] Chloride 103 98 - 107 mmol/L 08/29/2024 5:52 AM [facility] CO2 23 22 - 29 mmol/L 08/29/2024 5:52 AM [facility] Glucose 95 70 - 99 mg/dL 08/29/2024 5:52 AM [facility] Calcium 9.0 8.4 - 10.2 mg/dL 08/29/2024 5:52 AM [facility] Anion Gap 11 6 - 16 08/29/2024 5:52 AM [facility] BUN/Creatinine Ratio 15 7 - 23 08/29/2024 5:52 AM INSURANCE SALES EXECUTIVE [facility] Osmolality Calculated 285 275 - 295 mOsm/kg 08/29/2024 5:52 AM [facility] eGFR by CKD-EPI 68(L) >=90 mL/min/1.7 3 m2 08/29/2024 5:52 AM [facility] Blood BLOOD SPECIMEN / Unknown Lab Venipuncture / Unknown 08/29/2024 4:38 AM INSURANCE SALES EXECUTIVE 08/29/2024 5:14 AM INSURANCE SALES EXECUTIVE Chris Rodas MD LAB - CHEMISTRY ORD ERABLES [address] [address], [place] [phone] * PHOSPHORUS BLOOD (08/29/2024 4:38 AM INSURANCE SALES EXECUTIVE) Phosphorus 4.2 2.8 - 5.1 mg/dL 08/29/2024 5:52 AM INSURANCE SALES EXECUTIVE [facility] Blood BLOOD SPECIMEN / Unknown Lab Venipuncture / Unknown 08/29/2024 4:38 AM INSURANCE SALES EXECUTIVE 08/29/2024 5:14 AM INSURANCE SALES EXECUTIVE Chris Rodas MD LAB - CHEMISTRY ORD ERABLES [address] [address], [place] [phone] * MAGNESIUM BLOOD (08/29/2024 4:38 AM INSURANCE SALES EXECUTIVE) Magnesium 2.1 1.6 - 2.6 mg/dL 08/29/2024 5:52 AM INSURANCE SALES EXECUTIVE [facility] Blood BLOOD SPECIMEN / Unknown Lab Venipuncture / Unknown 08/29/2024 4:38 AM INSURANCE SALES EXECUTIVE 08/29/2024 5:14 AM INSURANCE SALES EXECUTIVE Chris Rodas MD LAB - CHEMISTRY ORD ERABLES [address] [address], [place] [phone] * XR CHEST 1VW PORTABLE (08/29/2024 4:14 AM INSURANCE SALES EXECUTIVE) Only the most recent of2 resultswithin the time period is included. Anatomical Region Laterality Modality Chest Digital Radiogra phy 08/29/2024 9:47 PM INSURANCE SALES EXECUTIVE Impressions 08/29/2024 9:49 PM INSURANCE SALES EXECUTIVE IMPRESSION: Stable cardiomediastinal silhouette. Atherosclerotic aorta. Low lung volumes. Mild bibasilar atelectasis. No large pleural effusion or pneumothorax. > Interpreting Provider: Travis Donis MD on 08/29/2024 9:49 PM Narrative 08/29/2024 9:49 PM INSURANCE SALES EXECUTIVE PROCEDURE: ??XR CHEST 1VW PORTABLE DATE/TIME OF [...] (ABNORMAL) SARS-COV-2 (COVID-19) RAPID (08/28/2024 4:00 PM INSURANCE SALES EXECUTIVE) COVID-19 PCR Detected( A) Not detected 08/28/2024 4:51 PM INSURANCE SALES EXECUTIVE [facility] Microbiology SPECIMEN FROM NASOPHARYNGEAL STRUCTURE / Unknown Collection / Unknown 08/28/2024 4:00 PM INSURANCE SALES EXECUTIVE 08/28/2024 4:08 PM INSURANCE SALES EXECUTIVE Narrative [facility] - 08/28/2024 4:51 PM INSURANCE SALES EXECUTIVE The Cepheid Xpert Xpress SARS-COV-2 has been [...] LAB - MICROBIOLOGY O RDERABLES [facility] [address] [place] [phone], [facility] [phone] * (ABNORMAL) URINE DRUG SCREEN IMMUNOASSAY (08/28/2024 12:52 PM INSURANCE SALES EXECUTIVE) Pathologist [facility] Amphetamines Screen Urine Negative Negative : < 1000 ng/mL 08/28/2024 1:27 PM [facility] Barbiturates Screen Urine Negative Negative : < 200 ng/mL 08/28/2024 1:27 PM [facility] Benzodiazepine Screen Urine Negative Negative : < 200 ng/mL 08/28/2024 1:27 PM [facility] Opiates Urine Positive(A) Negative : < 300 ng/mL 08/28/2024 1:27 PM [facility] Comment:Positive urine opiat e screening results should be confirmed by another generally accepted non-immunological method such as gas chromatography or mass spectrometry. Cocaine Metabolites Urine Negative Negative : < 300 ng/mL 08/28/2024 1:27 PM [facility] Phencyclidine Screen Urine Negative Negative : < 25 ng/ml 08/28/2024 1:27 PM [facility] Cannabinoids Screen Urine Negative Negative : <50 ng/mL 08/28/2024 1:27 PM [facility] Methadone Screen Urine Negative Negative : < 300 ng/mL 08/28/2024 1:27 PM [facility] Fentanyl Screen Urine Negative Negative : <1.5 ng/mL 08/28/2024 1:27 PM [facility] Urine URINE / Unknown Collection / Unknown 08/28/2024 12:52 PM INSURANCE SALES EXECUTIVE 08/28/2024 12:55 PM INSURANCE SALES EXECUTIVE Narrative [facility] - 08/28/2024 1:27 PM INSURANCE SALES EXECUTIVE The Urine Toxicology Screening Panel does not screen for Propoxyphene, Meprobamate, Carisoprodol, Trazodone, exat-gms-zngrqkd medications and/or volatiles (Acetone, Isopropanol, Methanol or Ethylene Glycol). Ethanol, Salicylate, Acetaminophen, Tricyclic Antidepressants and several therapeutic drugs may be individually assayed in serum or plasma specimen. Toxicology testing by the [facility] is an aid to medical diagnosis and treatment of patients. No documented chain of custody was maintained. Results are intended to be used for clinical purposes only. ? James Casillas MD LAB - URINE CHEMIS TRY ORDERABLES Performing Organization Address [facility]/State/[facility] Co de Phone Number [facility] [address] [place] [address], [place] [phone] * CT CHEST ABDOMEN PELVIS W CONT - Abdomen-pelvis trauma, blunt or penetrating (08/28/2024 12:41 PM INSURANCE SALES EXECUTIVE) Anatomical Region Laterality Modality Chest, Abdomen, Pelvis Computed Tomography 08/28/2024 12:4 8 PM INSURANCE SALES EXECUTIVE Impressions 08/28/2024 1:04 PM INSURANCE SALES EXECUTIVE IMPRESSION: Minimally displaced fracture of the right [...] 08/28/2024 1:04 PM Narrative 08/28/2024 1:04 PM INSURANCE SALES EXECUTIVE PROCEDURE: ??CT CHEST ABDOMEN PELVIS W CONT [...] T/L-spine trauma, Spine fracture (08/28/2024 12:41 PM INSURANCE SALES EXECUTIVE) Anatomical Region Laterality Modality Spine Computed Tomogra phy 08/28/2024 12:5 7 PM INSURANCE SALES EXECUTIVE Impressions 08/28/2024 1:50 PM INSURANCE SALES EXECUTIVE IMPRESSION: 1. No evidence of acute fracture in the thoracic spine. 2. Mildly displaced acute fractures of the right L1, L2 and L3 transverse processes. > Interpreting Provider: Barak Alcaraz MD on 08/28/2024 1:50 PM Narrative 08/28/2024 1:50 PM INSURANCE SALES EXECUTIVE PROCEDURE: ??CT THORACIC SPINE WO CONTRAST, CT LUMBAR SPINE WO CONTRAST, DATE/TIME OF EXAM: ??08/28/2024 12:42 PM, LOCATION ??[facility] INDICATION: Trauma ADDITIONAL CLINICAL INFORMATION: Ordering [...] DATE/TIME OF EXAM: 08/28/2024 12:42 PM, LOCATION [facility] INDICATION: Trauma ADDITIONAL CLINICAL INFORMATION: Ordering [...] fractures of the right L1, L2 and [id number] processes. > Interpreting Provider: Barak Alcaraz MD on 08/28/2024 1:50 PM James Casillas MD CT ORDERABLES * CT THORACIC SPINE WO CONTRAST - T/L-spine trauma, spine fracture (08/28/2024 12:41 PM INSURANCE SALES EXECUTIVE) Anatomical Region Laterality Modality Spine Computed Tomogra phy 08/28/2024 12:5 7 PM INSURANCE SALES EXECUTIVE Impressions 08/28/2024 1:50 PM INSURANCE SALES EXECUTIVE IMPRESSION: 1. No evidence of acute fracture in the thoracic spine. 2. Mildly displaced acute fractures of the right L1, L2 and L3 transverse processes. > Interpreting Provider: Barak Alcaraz MD on 08/28/2024 1:50 PM Narrative 08/28/2024 1:50 PM INSURANCE SALES EXECUTIVE PROCEDURE: ??CT THORACIC SPINE WO CONTRAST, CT LUMBAR SPINE WO CONTRAST, DATE/TIME OF EXAM: ??08/28/2024 12:42 PM, LOCATION ??[facility] INDICATION: Trauma ADDITIONAL CLINICAL INFORMATION: Ordering [...] DATE/TIME OF EXAM: 08/28/2024 12:42 PM, LOCATION [facility] INDICATION: Trauma ADDITIONAL CLINICAL INFORMATION: Ordering [...] fractures of the right L1, L2 and [id number] processes. > Interpreting Provider: Barak Alcaraz MD on 08/28/2024 1:50 PM James Casillas MD CT ORDERABLES * CT CERVICAL SPINE WO CONTRAST - C-Spine Trauma, Spine fracture (08/28/2024 12:41 PM INSURANCE SALES EXECUTIVE) Anatomical Region Laterality Modality Spine Computed Tomogra phy 08/28/2024 12:4 2 PM INSURANCE SALES EXECUTIVE Impressions 08/28/2024 12:57 PM INSURANCE SALES EXECUTIVE IMPRESSION: 1. No acute intracranial process. 2. No evidence of acute fracture in the cervical spine. > Interpreting Provider: Barak Alcaraz MD on 08/28/2024 12:57 PM Narrative 08/28/2024 12:57 PM INSURANCE SALES EXECUTIVE PROCEDURE: ??CT HEAD WO CONTRAST, CT CERVICAL SPINE WO CONTRAST, DATE/TIME OF EXAM: ??08/28/2024 12:42 PM, LOCATION ??[facility] INDICATION: Trauma ADDITIONAL CLINICAL INFORMATION: Ordering [...] CONTRAST,DATE/TIME OF EXAM: 08/28/2024 12:42 PM, LOCATION [facility] INDICATION: Trauma ADDITIONAL CLINICAL INFORMATION: Ordering [...] leak, mental status changes (08/28/2024 12:41 PM INSURANCE SALES EXECUTIVE) Anatomical Region Laterality Modality Head Computed Tomogra phy 08/28/2024 12:4 2 PM INSURANCE SALES EXECUTIVE Impressions 08/28/2024 12:57 PM INSURANCE SALES EXECUTIVE IMPRESSION: 1. No acute intracranial process. 2. No evidence of acute fracture in the cervical spine. > Interpreting Provider: Barak Alcaraz MD on 08/28/2024 12:57 PM Narrative 08/28/2024 12:57 PM INSURANCE SALES EXECUTIVE PROCEDURE: ??CT HEAD WO CONTRAST, CT CERVICAL SPINE WO CONTRAST, DATE/TIME OF EXAM: ??08/28/2024 12:42 PM, LOCATION ??[facility] INDICATION: Trauma ADDITIONAL CLINICAL INFORMATION: Ordering [...] CONTRAST,DATE/TIME OF EXAM: 08/28/2024 12:42 PM, LOCATION [facility] INDICATION: Trauma ADDITIONAL CLINICAL INFORMATION: Ordering [...] * BLOOD TYPE VERIFICATION (08/28/2024 12:36 PM INSURANCE SALES EXECUTIVE) ABO Rh A POS 08/28/2024 1:1 1 PM [facility] Blood Bank BLOOD SPECIMEN / Unknown Venipuncture / Unknown 08/28/2024 12:36 PM INSURANCE SALES EXECUTIVE 08/28/2024 12:41 PM INSURANCE SALES EXECUTIVE James Casillas MD LAB - BLOOD BANK O RDERABLES Performing Organization Address [facility] Co de Phone Number [facility] [address] [place] [address], [facility] [phone] * PT-INR [facility] (08/28/2024 12:21 PM INSURANCE SALES EXECUTIVE) Pathologist [facility] PT 14.7 12.1 - 14.8 Seconds 08/28/2024 1:01 PM [facility] INR 1.1 See Comment 08/28/2024 1:01 PM [facility] Comment:The suggested therap eutic range for standard coumadin (warfarin) therapy is an INR of 2.0-3.0. For high-risk patients (Mechanical Mitral Valve Prosthesis, etc.), the suggested prophylactic therapeutic range is an INR of 2.5-3.5. Blood BLOOD SPECIMEN / Unknown Venipuncture / Unknown 08/28/2024 12:21 PM INSURANCE SALES EXECUTIVE 08/28/2024 12:24 PM INSURANCE SALES EXECUTIVE James Casillas MD LAB - COAGULATION ORDERABLES Performing Organization Address [facility]/ZIP Co de Phone Number [facility] [address] [place] [address], [place] [phone] * TYPE + SCREEN PANEL (08/28/2024 12:21 PM INSURANCE SALES EXECUTIVE) Pathologist [facility] Antibody Screen NEG 1:03 PM INSURANCE SALES EXECUTIVE [facility] ABO Rh A POS 08/28/2024 1:03 PM [facility] Blood Bank BLOOD SPECIMEN / Unknown Venipuncture / Unknown 08/28/2024 12:21 PM INSURANCE SALES EXECUTIVE 08/28/2024 12:25 PM INSURANCE SALES EXECUTIVE James Casillas MD LAB - BLOOD BANK O RDERABLES [facility] [address] [place] [address] [phone] * (ABNORMAL) CBC W AUTO DIFFERENTIAL (08/28/2024 12:21 PM INSURANCE SALES EXECUTIVE) WBC 10.3 4.0 - 10.7 x10E9/L 08/28/2024 12:36 PM [facility] RBC Count 4.41 4.30 - 5.80 x10E12/L 08/28/2024 12:36 PM [facility] Hemoglobin 13.6 13.3 - 17.5 g/dL 08/28/2024 12:36 PM [facility] Hematocrit 39.2 38.7 - 51.1 % 08/28/2024 12:36 PM [facility] MCV 88.9 80.0 - 98.0 fL 08/28/2024 12:36 PM [facility] MCH 30.8 26.7 - 33.6 pg 08/28/2024 12:36 PM [facility] MCHC 34.7 31.7 - 36.3 g/dL 08/28/2024 12:36 PM [facility] RDW-CV 12.9 11.3 - 14.8 % 08/28/2024 12:36 PM [facility] Platelet Count 257 150 - 420 x10E9/L 08/28/2024 12:36 PM [facility] MPV 9.9 7.8 - 11.4 fL 08/28/2024 12:36 PM [facility] Neutrophil % 73.2 41.0 - 74.0 % 08/28/2024 12:36 PM [facility] Lymphocyte % 16.7(L) 17.0 - 47.0 % 08/28/2024 12:36 PM [facility] Monocyte % 8.6 3.0 - 11.0 % 08/28/2024 12:36 PM [facility] Eosinophil % 0.7 0.0 - 7.0 % 08/28/2024 12:36 PM [facility] Basophil % 0.3 0.0 - 1.6 % 08/28/2024 12:36 PM [facility] Immature Granulocytes % 0.5 0.0 - 1.0 % 08/28/2024 12:36 PM [facility] Neutrophil Absolute 7.53(H) 1.60 - 7.50 x10E9/L 08/28/2024 12:36 PM [facility] Lymphocyte Absolute 1.71 1.00 - 4.40 x10E9/L 08/28/2024 12:36 PM [facility] Monocyte Absolute 0.88 0.15 - 1.00 x10E9/L 08/28/2024 12:36 PM [facility] Eosinophil Absolute 0.07 0.00 - 0.60 x10E9/L 08/28/2024 12:36 PM [facility] Basophil Absolute 0.03 0.00 - 0.13 x10E9/L 08/28/2024 12:36 PM [facility] Blood BLOOD SPECIMEN / Unknown Venipuncture / Unknown 08/28/2024 12:21 PM INSURANCE SALES EXECUTIVE 08/28/2024 12:30 PM [facility] James Casillas MD LAB - HEMATOLOGY O RDERABLES Performing Organization Address City/State/[facility] Co de Phone Number [facility] [address] [place] [phone] [phone] * ALCOHOL ETHYL BLOOD (08/28/2024 12:21 PM [facility]) Ethanol (mg/dL) <10 <10 mg/dL 12:57 PM [facility] Ethanol Calculated (g/dL) <0.010 <=0.010 g/dL 08/28/2024 12:57 PM [facility] Blood BLOOD SPECIMEN / Unknown Venipuncture / Unknown 08/28/2024 12:21 PM INSURANCE SALES EXECUTIVE 08/28/2024 12:30 PM INSURANCE SALES EXECUTIVE Narrative [facility] - 08/28/2024 12:57 PM INSURANCE SALES EXECUTIVE Ethanol Interp <10: None Detected. Depression of PUBLIC ADDRESS SERVICER: >100 mg/dl Potentially Critical: >250 mg/dl Potentially [...] Casillas MD LAB - CHEMISTRY OR DERABLES [facility] [address] [place] [address], [facility] [phone] from Last 3 Months Advance Directives * Full Code (Latest Code Status on File) Date Activated Date Inactivated Comments 08/28/2024 3:19 PM 08/29/2024 4:52 PM Care Teams Hearing Stenographer Relationship Specialty Start Date End Date Jesus Dias MD PCP - General Internal Medicine 08/06/15 [place] [id number] [address] Orthopedic Surgery 08/10/15
== END 2024-10-23 14:01 | disposition home or self-care (01) ==
PROVIDERS: PCP Internal Medicine; Visit Provider Orthopaedic Surgery
DX: M16.12 Unilateral primary osteoarthritis, left hip (principal)
CPT/HCPCS: 20610; 77002; J1010; Q9966

== ENCOUNTER 2025-02-07 12:54 | Outpatient (CLI) | payer OTHER, SELFPAY ==
--- NOTE | ~2025-02-07 | XR_ITS ---
EXAMINATION: XR lg joint inject/asp w image DATE: 02/07/2025 14:32 INDICATION: Left hip arthritis TECHNIQUE: A time-out was performed to verify the patient's name, date of , and procedure to b e performed. The procedure including the risks, benefits, and alternatives was discussed with the pat ient. Risks discussed included bleeding and infection. The patient understood the risks and agreed to proceed. The skin overlying the left hip joint was prepped and draped in usual sterile fashion. An esthetic was administered with 1% lidocaine subcutaneously. A 22 G needle was advanced under fluoros copic guidance into the joint. Injection of 1 mL of Omnipaque 240 confirmed intra-articular position of the needle. Subsequently, injectate consisting of 3 mm of a 2:1 mixture of 0.5% bupivacaine: 80 mg/mL Depo-Medrol for a total dosage of 80 mg Depo-Medrol was instilled. Washout of contrast was seen confirming intra-articular administration. The needle was removed and the entry site was cleaned and dressed. There were no immediate complications. Fluoroscopy exposure time was 0.1 minutes. The tota l number of images was 2. Total DAP was 0.452 Gycm^2. FINDINGS: Real-time fluoroscopy demonstrates the needle in the left hip joint. Patient's pain prior t o procedure:10/11. Patient's pain following the procedure: 10/11. IMPRESSION: 1. Successful left hip joint injection of local anesthetic and steroid with no change in the minimal amount of patient's presenting pain. Reviewed, dictated and finalized at location A.
--- OUTSIDE RECORDS SUMMARY | 2025-02-07 12:57 | XMS_ITS | Data Portability ---
Author Organization [facility], Main Office Address [address] [place] [address] Care Team Providers Care Woodwork Salvage Inspector Name Role Phone ZOYA BYRNES Primary Care [...] By Organization Details Last Modified Time 12/26/2022 [id number] this patient believes that he has mupirocin at home and will use it whenever necessary. [email or web address] Not available 12/26/2022 16:06:44 Reason for Referral None Reported. Problems Name Problem SNOMED Code Status Onset Date Resolution Date Notes Provider Name and Address Organization Details Recorded Time Folliculitis 11456424 Active 023 Jama Wheeler MD [address] [facility] [address], [place], [address] [place] [address] [employer] [facility] [employer] 16:06:32 Problem Notes None recorded. Medical Equipment [...] Address Organization Details Last Updated DateTime 12/26/2022 78064.99 g 97.4 [degF] 25.6 kg/m2 170.18 cm Dee Howard RN [facility] [employer] 12/26/2022 15:44:31 Social History Question Answer Notes LastModified by Organizat ion Details LastModified Time Tobacco Smoking Status Never Smoker Dee Howard RN null, [facility] [email or web address] 12/22/2022 15:37:02 What Is Your Level Of [...] 15:36:40 Medical History Condition Response MRSA N BACK INJECTIONS N ALLERGIES/HAYFEVER N LUNG DISEASE/DISORDER N INSOMNIA N HISTORY OF DRUG ABUSE N ESRD N RADIATION / CHEMOTHERAPY N COPD N HIGH CHOLESTEROL / HYPERLIPIDEMIA N HYPERTHYROIDISM N PVD N BLOOD DISEASES N EAR OR HEARING PROBLEMS N HYPOTHYROIDISM N SHINGLES N DEPRESSION (INCLUDING POST ) N BACK / NECK PROBLEMS N HAVE YOU BEEN HOSPITALIZED OR SEEN IN [facility] ER IN THE PAST YEAR ? N FAILED BACK SYNDROME N STROKE/TIA N POLYCYSTIC OVARIES N OBESITY N HISTORY WITH COMPLICATIONS WITH ANESTHES IA ? N ANEURYSM N Do you have Advance directive? N [...] SNOMED-CT Code Diagnosis ICD10 Code Diagnosis Note [id number] Jama Wheeler MD [facility] [place] [address] [place] [address] 12/26/2022 15:35:55 12/26/2022 16:08:14 Folliculitis 96431299 L73.9 Health Concerns Section Related Observation LastModified by Organization Detai ls LastModified Time None Recorded Concern Status LastModified by Organization Details LastModified Time None Recorded Advance Directives Directive None Recorded Payers Encounter Date Sequence Insurance Name Policy Number Policy Mendiola Covered Member ID Mendiola Member ID Guarantor Name 12/26/2022 1 [employer] - OPEN ACCESS [id number] Nas Schroeder [id number] OI Nas Schroeder Notes Date Note Type Note Provider Name and Address Organization Details Recorded Time 12/26/2022 text/html this patient had a cold and a sinus infection and developed a left vestibular fissure. This was painful and he was seen in the emergency room was given an appointment and this did resolve. This likely was catrachitapirocshahid Wheeler MD [address] [place] [address], [phone], [facility] [employer] 12/26/2022 16:07:04
--- OUTSIDE RECORDS SUMMARY | 2025-02-07 12:58 | XMS_ITS | Clinical Summary ---
Author Organization [facility] Address [address] [place] [phone] Care Team Providers Care Irrigator Overhead Name Role Phone Unavailable Primary Care Provider Unavailabl e Encounters Date Type Department Care Team Description 02/04/2025 External Device Data STL ABSTRACTION Provider, Abstract 12/18/2024 External Device Data STL ABSTRACTION Provider, Abstract 12/07/2024 External Device Data ST[facility] ABSTRACTION Provider, Abstract 12/06/2024 External Device Data STL ABSTRACTION Provider, Abstract 11/19/2024 External Device Data STL ABSTRACTION Provider, Abstract from Last 3 Months Social History Tobacco Use Types Packs/Day Years Used Date Smoking Tobacco: Never Assessed Sex and Gender Information Value Date Recorded Sex Assigned at Not on file 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 Relation to Subscriber:Self Name:Nas Schroeder Jr. Payer ID:Not on file Group ID:Not on file Type:HMO Address: [facility] [id number] [place] [id number]
--- OUTSIDE RECORDS SUMMARY | 2025-02-07 12:58 | XMS_ITS | Clinical Summary ---
Author Organization [facility] Address [address] [facility] [place] [address] Care Team Providers Care Diamond Selector Name Role Phone Jesus Dias MD Primary Care Provider Hailey ESTEVES MD, Cristiano Unavailable [phone] Source Comments [facility],non-owned Affiliates and Associated Physician Practices is amultiple site organization consisting of ambulatory clinics and hospital sitesin [place], [place], [place] and [place]. This disclosure is being madepursuant to the Care Everywhere program and may not contain all information available regarding this patient. Last updated 18.[facility] Allergies No known active allergies Medications * Be aware that medications may not be up to date on this document. Alwaysverify current medications with the patient. finasteride (Proscar) 5 MG tablet Take 1 (one) tablet by mouth every 2 days Active atorvastatin (Lipitor) 20 MG tablet Take 1 (one) tablet by mouth once daily Active lisinopril-hydr oCHLOROthiazide (Prinzide; Zestoretic) 10-12.5 MG tablet Take 1 (one) tablet by mouth once daily Active fluticasone propionate (Flonase) 50 MCG/ACT nasal spray [place] 2 (two) sprays into each nostril once daily 1 Each 08/29/2024 Active loratadine (Claritin) 10 MG tablet Take 1 (one) tablet by mouth once daily 30 tablet 08/29/2024 Active vitamin D3 (Cholecalcifero l) 25 MCG (1000 UNITS) tablet Take 1 (one) tablet by mouth once daily 30 tablet 08/29/2024 Active oxyCODONE, immediate release, (Roxicodone) 5 MG tabletIndicatio ns:Fall, initial encounter Take 0.5 (one-half) tablet by [...] at Not on file Legal Sex Male 11:52 AM CDT Gender Identity Not on file Sexual Orientation Not on file Last Filed Vital Signs Vital Sign Reading Time Taken Comments Blood Pressure 137/62 08/29/2024 11:31 AM KNITTING DEMONSTRATOR Pulse 73 08/29/2024 11:31 AM KNITTING DEMONSTRATOR Temperature 36.4 C (97.5 F) 08/29/2024 11:31 AM KNITTING DEMONSTRATOR Respiratory Rate 20 08/29/2024 11:31 AM KNITTING DEMONSTRATOR Oxygen Saturation 95% 08/29/2024 11:31 AM KNITTING DEMONSTRATOR Inhaled Oxygen Concentration - - Weight 71.7 kg (158 lb) 10/14/2024 2:46 PM KNITTING DEMONSTRATOR Height 180.3 cm (5' 11 ) 08/28/2024 12:13 PM KNITTING DEMONSTRATOR Body Mass Index 22.04 08/28/2024 12:13 PM KNITTING DEMONSTRATOR Plan of Treatment Health Maintenance Due Date Last Done Comments DTAP/TDAP/TD VACCINES (1 - Tdap) 1964 PNEUMOCOCCAL VACCINE 50+ (1 of 1 - PCV) 1995 ZOSTER VACCINE (1 of 2) 1995 Respiratory Syncytial Virus (RSV) Vaccine Pt: or over 60 yrs (1 - 1-dose 75+ series) 2020 DEPRESSION SCREENING 10/02/2024 COVID-19 VACCINE ( season) 2025 07/17/2024, 01/26/2024, 07/18/2023, Additional history exists INFLUENZA VACCINE Completed [...] complete this topic MENINGOCOCCAL (Group B) VACCINE SHARED DECISION-MAKING Aged Out No longer eligible based on patient's age to complete this topic MENINGOCOCCAL GROUPS A/C/Y/W VACCINE Aged Out No longer eligible based on patient's age to complete this topic Insurance [employer] Advance Directives * Full Code (Latest Code Status on File) Date Activated Date Inactivated Comments 08/28/2024 3:19 PM 08/29/2024 4:52 PM Care Teams Diamond Selector Relationship Specialty Start Date End Date Jesus Dias MD PCP - General Internal Medicine 08/06/[address] [place] [address] [address] Orthopedic Surgery 08/10/15
== END 2025-02-07 12:55 | disposition home or self-care (01) ==
LOC: ANHIMG 12:55
PROVIDERS: PCP Internal Medicine; Visit Provider Orthopaedic Surgery
DX: M16.12 Unilateral primary osteoarthritis, left hip (principal)
CPT/HCPCS: 20610; 77002; J1010; Q9966

== ENCOUNTER 2025-04-03 08:49 | Outpatient (CLI) | payer OTHER, SELFPAY ==
--- NOTE | ~2025-04-03 | US_ITS ---
Ankle Brachial Index with Ultrasound Dopplers and Pulse Volume Recordings Technique: Pressures in the arm and lower extremity were obtained. Additionally, arterial and pulse v olume waveforms were obtained bilaterally. Findings: Segmental pressures (mmHg) Right brachial: 128 Right posterior tibial: 160 Right dorsalis pedis: 159 Left brachial: 114 Left posterior tibial: 79 Left dorsalis pedis: 80 There are monophasic waveforms bilaterally, left more than right. YARIEL Right 1.25 Left 0.63 TBI Right 0.30 Left 0.30 Impression: Moderate peripheral vascular disease detected bilaterally, left far greater than right. Reviewed, dictated and finalized at location A. Impression: Moderate peripheral vascular disease detected bilaterally, left far greater than right.
--- OUTSIDE RECORDS SUMMARY | 2025-04-03 08:57 | XMS_ITS | Data Portability ---
Author Organization [facility], Main Office Address [address] [place] [address] Care Team Providers Care Physician Industrial Name Role Phone ZOYA BYRNES Primary Care Provider [phone] Assessment No assessment recorded. Plan of Treatment [...] By Organization Details Last Modified Time 12/26/2022 [id number] this patient believes that he has mupirocin at home and will use it whenever necessary. [email or web address] Not available 12/26/2022 16:06:44 Reason for Referral None Reported. Problems Name Problem SNOMED Code Status Onset Date Resolution Date Notes Provider Name and Address Organization Details Recorded Time Folliculitis 92564568 Active 023 Jama Wheeler MD [address] [facility] [address], [place], [address] [place] [address] [facility] 16:06:32 Problem Notes None recorded. Medical Equipment [...] Not Available No t Available amoxicillin 875 mg-maritzau m clavulanate 125 mg tablet TAKE 1 [...] Address Organization Details Last Updated DateTime 12/26/2022 54010.99 g 97.4 [degF] 25.6 kg/m2 170.18 cm Dee Howard RN [place] [facility] 12/26/2022 15:44:31 Social History None recorded. Functional Status Question Answer Note LastModified by Organizat ion Details LastModified Time What is your level of alcohol consumption? Occasional [email or web address] Information not available 12/22/2022 Mental Status None recorded. Family History Relationship Description Onset Age of this Age Resolved Age Notes LastModified by Organization Details LastModified Time Father No current problems or disability [email or web address] Not available 12/22 15:36:40 Mother No current problems or disability [email or web address] Not available 12/22 15:36:40 Medical History Condition Response MRSA N LUNG DISEASE/DISORDER N HISTORY OF DRUG ABUSE N COPD N RADIATION / CHEMOTHERAPY N BLOOD DISEASES N EAR OR HEARING PROBLEMS N SHINGLES N DEPRESSION (INCLUDING POST ) N FAILED BACK SYNDROME N STROKE/TIA N OBESITY N ANEURYSM N Do you have Advance directive? N USE OF BLOOD THINNERS N PARATHYROID DISEASE N ARTERIAL INSUFFICIENCY N CHF N AIDS/HIV N HYPERTENSION Y TOURETTE'S N BLOOD TRANSFUSION N ANEMIA/BLOOD DISORDER N CHRONIC EAR INFECTIONS N TUBERCULOSIS N BACK INJECTIONS N ALLERGIES/HAYFEVER N ESRD N INSOMNIA N HIGH CHOLESTEROL / HYPERLIPIDEMIA N HYPERTHYROIDISM N PVD N HYPOTHYROIDISM N BACK / NECK PROBLEMS N HAVE YOU BEEN HOSPITALIZED OR SEEN IN E ER IN THE PAST YEAR ? N POLYCYSTIC OVARIES N HISTORY WITH COMPLICATIONS WITH ANESTHES IA ? N NO SIGNIFICANT PAST MEDICAL HISTORY N DIABETES, TYPE N VON WILLIBRAND'S DISEASE N ENT N SEASONAL ALLERGIES N HEARTBURN / REFLUX N POST LAMINECTOMY SYNDROME N HEPATITIS / LIVER DISEASE N SLEEP DISORDER N HEADACHES/MIGRAINES N SEIZURES/EPILEPSY N PACEMAKER N DIZZINESS N HEART DISEASE/HEART PROBLEMS N NEUROPSYCHOLOGICAL N CANCER: SPECIFY N ANESTHESIA COMPLICATIONS N ATRIAL FIBRILLATION N AUTOIMMUNE DISEASE N Past Encounters Encounter ID Performer Location Encounter Start Date Encounter Closed Date Diagnosis/Indication Diagnosis SNOMED-CT Code Diagnosis ICD10 Code Diagnosis Note [id number] Jama Wheeler MD [facility] [place] [address] [place] [address] 12/26/2022 15:35:55 12/26/2022 16:08:14 Folliculitis 37485238 L73.9 Health Concerns Section Related Observation LastModified by Organization Detai ls LastModified Time None Recorded Concern Status LastModified by Organization Details LastModified Time None Recorded Advance Directives Directive None Recorded Payers Insurance Date Sequence Insurance Name Policy Number Policy Mendiola Covered Member ID Mendiola Member ID Guarantor Name 09/19/2024 1 [employer] - OPEN ACCESS [id number] Nas [facility] [id number] [facility] 09/19/2024 [facility] [employer] [facility] Notes Date Note Type Note Provider Name and Address Organization Details Recorded Time 12/26/2022 text/html this patient had a cold and a sinus infection and developed a left vestibular fissure. This was painful and he was seen in the emergency room was given an appointment and this did resolve. This likely was mupirocin Jama Wheeler MD [address] [place] [address], [place] [address], [place], [address], [facility] [employer] 12/26/2022 16:07:04
--- OUTSIDE RECORDS SUMMARY | 2025-04-03 08:57 | XMS_ITS | Clinical Summary ---
Author Organization 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
--- OUTSIDE RECORDS SUMMARY | 2025-04-03 08:57 | XMS_ITS | Clinical Summary ---
Author Organization [facility] Address [address] [facility] [place] [address] Care Team Providers Care Background Investigator Name Role Phone Jesus Dias MD Primary Care Provider Hailey ESTEVES MD, Cristiano Unavailable [phone] Source Comments [facility],non-owned Affiliates and Associated Physician Practices is amultiple site organization consisting of ambulatory clinics and hospital sitesin [place], [place], [place] and [place]. This disclosure is being madepursuant to the Care Everywhere program and may not contain all information available regarding this patient. Last updated 18.[facility] Allergies No known active allergies Medications [...] fluticasone propionate (Flonase) 50 MCG/ACT nasal spray [place] 2 (two) sprays into each nostril once [...] Comments Blood Pressure 137/62 08/29/2024 11:31 AM RATING OFFICER Pulse 73 08/29/2024 11:31 AM RATING OFFICER Temperature 36.4 C (97.5 F) 08/29/2024 11:31 AM RATING OFFICER Respiratory Rate 20 08/29/2024 11:31 AM RATING OFFICER Oxygen Saturation 95% 08/29/2024 11:31 AM RATING OFFICER Inhaled Oxygen Concentration - - Weight 71.7 kg (158 lb) 10/14/2024 2:46 PM RATING OFFICER Height 180.3 cm (5' 11) 08/28/2024 12:13 PM RATING OFFICER Body Mass Index 22.04 08/28/2024 12:13 PM RATING OFFICER Plan of Treatment Health Maintenance Due Date [...] patient's age to complete this topic Insurance [employer] [facility] Address: [place] [id number] [place] [address] Advance Directives * Full Code (Latest Code Status on File) Date Activated Date Inactivated Comments 08/28/2024 3:19 PM 08/29/2024 4:52 PM Care Teams Background Investigator Relationship Specialty Start Date End Date Jesus Dias MD PCP - General Internal Medicine 08/06/15 [place] [address] [address] [address] Orthopedic Surgery 08/10/15
== END 2025-04-03 08:50 | disposition home or self-care (01) ==
PROVIDERS: PCP Internal Medicine; Visit Provider Orthopaedic Surgery
DX: M79.673 Pain in unspecified foot (principal); I77.1 Stricture of artery
CPT/HCPCS: 93922

== ENCOUNTER 2025-05-16 13:42 | Outpatient (CLI) | payer OTHER, SELFPAY ==
--- NOTE | ~2025-05-16 | XR_ITS ---
EXAMINATION: XR lg joint inject/asp w image DATE: 05/16/2025 14:47 INDICATION: Left hip arthritis TECHNIQUE: A time-out was performed to verify the patient's name, date of , and procedure to b e performed. The procedure including the risks, benefits, and alternatives was discussed with the pat ient. Risks discussed included bleeding and infection. The patient understood the risks and agreed to proceed. The skin overlying the left hip joint was prepped and draped in usual sterile fashion. An esthetic was administered with 1% lidocaine subcutaneously. A 22 G needle was advanced under fluoros copic guidance into the joint. Injection of 1 mL of Omnipaque 240 confirmed intra-articular position of the needle. Subsequently, injectate consisting of 3 mL of a 2:1 mixture of 0.5% bupivacaine: 80 mg/mL Depo-Medrol for a total dosage of 80 mg Depo-Medrol was instilled. Washout of contrast was seen confirming intra-articular administration. The needle was removed and the entry site was cleaned and dressed. There were no immediate complications. Fluoroscopy exposure time was 0.1 minutes. The tota l number of images was 2 Total DAP was 0.526mGycm^2. FINDINGS: Real-time fluoroscopy demonstrates the needle in the left hip joint. Patient's pain prior t o procedure:11/11. Patient's pain following the procedure: 10/11. IMPRESSION: 1. Successful left hip joint injection of local anesthetic and steroid with decrease in the patient's presenting pain. Reviewed, dictated and finalized at location A. IMPRESSION: 1. Successful left hip joint injection of local anesthetic and steroid with dec rease in the patient's presenting pain.
--- OUTSIDE RECORDS SUMMARY | 2025-05-16 13:55 | XMS_ITS | Clinical Summary ---
Author Organization [facility] Address [address] [place] [address] Care Team Providers Care Mail Weigher Name Role Phone Jesus Dias MD Primary Care Provider [phone] Allergies No known active allergies Medications lisinopril-hydro CHLOROthiazide (ZESTORETIC) 10-12.5 mg per tablet Take 1 tablet every day by oral route. 04/27/2018 Active finasteride (PROSCAR) 5 mg tablet Take 1 tablet (5 mg total) by mouth every other day Active atorvastatin (LIPITOR) 20 mg tablet Take 1 tablet every day by oral route. Active Active Problems Problem Noted Date Diagnosed Date Peripheral vascular disease, unspecified 025 Overview (04/16/2025): FU in 1 month with repeat arterial doppler. Assessment & Plan (04/17/2025 11:57 AM CDT): Considering patient's outside imaging was limited to YARIEL, will proceed with bilateral lower extremity Doppler for waveforms at the femoral, popliteal, distal levels. Hyperlipidemia 04/16/2025 Overview (04/16/2025): Lipitor Hypertension 01/01/2015 Overview (01/06/2017): HBP Encounters Date Type Department Care Team Description 05/13/2025 1:00 PM CDT Ancillary Procedure [facility] Vascular and Vein Surgery at [address] [place] [address] 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 04/16/2025 8:15 AM CDT Office Visit [facility] Vascular at [address] [place] [address] Domi Barba PA Peripheral vascular disease, unspecified (Primary Dx); Hypertension, unspecified type; Hyperlipidemia, unspecified hyperlipidemia type; Atherosclerosis of arteries of extremities 04/16/2025 Orders Only [facility] Vascular at [address] [place] [address] Gardenia Moon MD 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 (Primary Dx) from Last 3 Months Social History Tobacco Use Types Packs/Day Years Used Date Smoking Tobacco: Never Alcohol Use Standard Drinks/Week Comments Yes 0 (1 standard drink = 0.6 oz pur e alcohol) Sex and Gender Information Value Date Recorded Sex Assigned at Not on file Legal Sex Male 3:37 AM CARE DIRECTOR Gender Identity Not on file Sexual Orientation Not on file Obstetrics History Last Filed Vital Signs Vital Sign Reading Time Taken Comments Blood Pressure 146/85 04/16/2025 8:05 AM CDT Pulse 66 04/16/2025 8:05 AM CDT Temperature - - Respiratory Rate - - Oxygen Saturation 98% 04/16/2025 8:05 AM CDT Inhaled Oxygen Concentration - - Weight 74.8 kg (165 lb) 04/16/2025 8:05 AM CDT Height 170.2 cm (5' 7) 04/16/2025 8:05 AM CDT Body Mass Index 25.84 04/16/2025 8:05 AM CDT Plan of Treatment Health Maintenance Due Date Last Done Comments Depression Screening 1945 Fall Risk Assessment 1945 Hepatitis C Screening 1945 Hepatitis B Screening 1963 Pneumococcal vaccine 65+ (1 of 1 - PCV) 1995 Zoster Vaccine (1 of 2) 1995 Well Visit 65+ 2010 Influenza Vaccine (#1) 2025 , 07/18/2023, 07/26/2022, Additional history exists DTaP/Tdap/Td Vaccine (3 - Td or Tdap) 06/05/2029 06/05/2019, 07/02/2015 Covid-19 Vaccine Completed 03/24/2025, , 01/26/2024, Additional history exists Procedures Procedure Name Priority Date/Time Associated Diagnosis Comments US ARTERIAL DOPPLER LOWER EXTREMITY BILATERAL Schedule Routine, Read Routine (OP Routine) 05/13/2025 2:32 PM CDT 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 from Last 3 Months Results * US Arterial Doppler Lower Extremity Bilateral (05/13/2025 2:32 PM CDT) Anatomical Region Laterality Modality Vascular Bilateral Ultrasound 05/13/2025 12:5 6 PM CDT Narrative 05/16/2025 9:28 AM CDT Vascular & Vein Surgery [address] [place] [address] Lower Extremity Arterial Doppler Report Patient Name: LIU TYSON W : 1945 Study Date: 05/13/2025 12:56:00 PM Gender: M Testing Coordinator: Melani Rodas RVT Location: [facility] Ref Provider: GARDENIA MOON Quality: Adequate Order Provider: GARDENIA MOON PROCEDURES: Arterial Report: Bilateral lower extremity arterial Doppler exam at rest. INDICATIONS: I70.213 Atherosclerosis of bear river arteries of extremities with intermittent claudication, bilateral legs. HISTORY: HTN. HLD. COMPARISONS: The previous exam was completed on 04/03/25 @ [facility]: Rt 1.25, Lt 0.63. MEASUREMENTS: Right Value Left Value Rt Brachial Pressure 170 mmHg Lt Brachial Pressure 162 mmHg Rt Calf Pressure >220 mmHg Lt Calf Pressure 176 mmHg Rt CRABBING MACHINE OPERATOR Pressure >220 mmHg Lt CRABBING MACHINE OPERATOR Pressure 149 mmHg Rt DPA Pressure >220 mmHg Lt DPA Pressure 151 mmHg Rt 1st Digit Pressure 89 mmHg Lt 1st Digit Pressure 79 mmHg Rt Calf Index >1.29 Lt Calf Index 1.04 Rt PT YARIEL Resting >1.29 Lt PT YARIEL Resting 0.88 Rt DP YARIEL Resting >1.29 Lt DP YARIEL Resting 0.89 Rt Digit 1/Arm Index 0.52 Lt Digit 1/Arm Index 0.46 FINDINGS: Right Common Femoral Artery Analysis: The common femoral artery waveform is triphasic. Right Popliteal Artery Analysis: The popliteal waveform is triphasic. Right Posterior Tibial Artery Analysis: The posterior tibial waveform is triphasic. Right Anterior Tibial Artery Analysis: The anterior tibial waveform is triphasic. Right Digits: The right digit waveform is dampened. Left Common Femoral Artery Analysis: The common femoral artery waveform is triphasic. Left Popliteal Artery Analysis: The popliteal waveform is triphasic. Left Posterior Tibial Artery Analysis: The posterior tibial waveform is biphasic. Left Anterior Tibial Artery Analysis: The anterior tibial waveform is monophasic. Left Digits: The left digit waveform is dampened. CONCLUSIONS: 1. Ankle-brachial index of >1.3 is non-compressible which is consistent with arterial calcifications, thus the ankle/brachial index is not obtainable in the right lower extremity. 2. 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 3. There is evidence of left leg arterial insufficiency at the level of anterior tibial artery. ATTESTATION: I have reviewed and interpreted the pertinent images and measurements of this study. I attest to the conclusions in the final report that is provided above. Electronically Signed By: Gardenia Moon MD 05/16/2025 8:29:07 AM CDT Procedure Note Gardenia Moon MD - 05/16/2025 Vascular & Vein Surgery [address] [place] [address] Lower Extremity Arterial Doppler Report Patient Name: LIU TYSON W : 1945 Study Date: 05/13/2025 12:56:00 PM Gender: M Testing Coordinator: Melani Rodas RVT Location: [facility] Ref Provider: GARDENIA MOON Quality: Adequate Order Provider: GARDENIA MOON PROCEDURES: Arterial Report: Bilateral lower extremity arterial Doppler exam at rest. INDICATIONS: I70.213 Atherosclerosis of bear river arteries of extremities withintermittent claudication, bilateral legs. HISTORY: HTN. HLD. COMPARISONS: The previous exam was completed on 04/03/25 @ [facility]: Rt 1.25, Lt 0.63. MEASUREMENTS: Right Value Left Value Rt Brachial Pressure 170 mmHg Lt Brachial Pressure 162 mmHg Rt Calf Pressure >220 mmHg Lt Calf Pressure 176 mmHg Rt CRABBING MACHINE OPERATOR Pressure >220 mmHg Lt CRABBING MACHINE OPERATOR Pressure 149 mmHg Rt DPA Pressure >220 mmHg Lt DPA Pressure 151 mmHg Rt 1st Digit Pressure 89 mmHg Lt 1st Digit Pressure 79 mmHg Rt Calf Index >1.29 Lt Calf Index 1.04 Rt PT YARIEL Resting >1.29 Lt PT YARIEL Resting 0.88 Rt DP YARIEL Resting >1.29 Lt DP YARIEL Resting 0.89 Rt Digit 1/Arm Index 0.52 Lt Digit 1/Arm Index 0.46 FINDINGS: Right Common Femoral Artery Analysis: The common femoral artery waveform is triphasic. Right Popliteal Artery Analysis: The popliteal waveform is triphasic. Right Posterior Tibial Artery Analysis: The posterior tibial waveform is triphasic. Right Anterior Tibial Artery Analysis: The anterior tibial waveform is triphasic. Right Digits: The right digit waveform is dampened. Left Common Femoral Artery Analysis: The common femoral artery waveform is triphasic. Left Popliteal Artery Analysis: The popliteal waveform is triphasic. Left Posterior Tibial Artery Analysis: The posterior tibial waveform is biphasic. Left Anterior Tibial Artery Analysis: The anterior tibial waveform is monophasic. Left Digits: The left digit waveform is dampened. CONCLUSIONS: 1. Ankle-brachial index of >1.3 is non-compressible which is consistentwith arterial calcifications, thus the ankle/brachial index is not obtainable in theright lower extremity. 2. Ankle-brachial index of 0.8-0.9 is consistent with mild occlusivearterial disease in the left lower extremity. 3. There is evidence of left leg arterial insufficiency at the level ofanterior tibial artery. ATTESTATION: I have reviewed and interpreted the pertinent images and measurements ofthis study. I attest to the conclusions in the final report that is provided above. Electronically Signed By: Gardenia Moon MD 05/16/2025 8:29:07 AM CDT Gardenia Moon MD [facility] PROCEDURES Final Result from Last 3 Months Insurance [facility] [id number] Care Teams Mail Weigher Relationship Specialty Start Date End Date Jesus Dias MD [address] [facility] [address] PCP - General 01/01/15
--- OUTSIDE RECORDS SUMMARY | 2025-05-16 13:55 | XMS_ITS | Clinical Summary ---
Author Organization [facility] Address [address] [place] [address] Care Team Providers Care Social Services Aide Name Role Phone Jesus Dias MD Primary Care Provider Hailey ESTEVES MD, Cristiano Unavailable [phone] Source Comments [facility],non-owned Affiliates and Associated Physician Practices is amultiple site organization consisting of ambulatory clinics and hospital sitesin [place], [place], [place] and [place]. This disclosure is being madepursuant to the Care Everywhere program and may not contain all information available regarding this patient. Last updated 18.[facility] Allergies No known active allergies Medications * [...] fluticasone propionate (Flonase) 50 MCG/ACT nasal spray [place] 2 (two) sprays into each nostril once [...] Comments Blood Pressure 137/62 08/29/2024 11:31 AM MANAGER CANCER Pulse 73 08/29/2024 11:31 AM MANAGER CANCER Temperature 36.4 C (97.5 F) 08/29/2024 11:31 AM MANAGER CANCER Respiratory Rate 20 08/29/2024 11:31 AM MANAGER CANCER Oxygen Saturation 95% 08/29/2024 11:31 AM MANAGER CANCER Inhaled Oxygen Concentration - - Weight 71.7 kg (158 lb) 10/14/2024 2:46 PM MANAGER CANCER Height 180.3 cm (5' 11) 08/28/2024 12:13 PM MANAGER CANCER Body Mass Index 22.04 08/28/2024 12:13 PM MANAGER CANCER Plan of Treatment Health Maintenance Due Date Last Done Comments DTAP/TDAP/TD VACCINES (1 - Tdap) 1964 PNEUMOCOCCAL VACCINE 50+ (1 of 1 - PCV) 1995 ZOSTER VACCINE (1 of 2) 1995 Respiratory Syncytial Virus (RSV) Vaccine Pt: or over 60 yrs (1 - 1-dose 75+ series) 2020 DEPRESSION SCREENING 10/02/2024 COVID-19 VACCINE ( season) 2025 07/17/2024, 01/26/2024, 07/18/2023, Additional history exists INFLUENZA VACCINE (#1) 2025 , 07/18/2023, 07/26/2022, Additional history exists HEPATITIS B VACCINE [...] patient's age to complete this topic Insurance [id number] Advance Directives * Full Code (Latest Code Status on File) Date Activated Date Inactivated Comments 08/28/2024 3:19 PM 08/29/2024 4:52 PM Care Teams Social Services Aide Relationship Specialty Start Date End Date Jesus Dias MD PCP - General Internal Medicine 08/06/[address] [place] [id number] [address] Orthopedic Surgery 08/10/15
--- OUTSIDE RECORDS SUMMARY | 2025-05-16 13:55 | XMS_ITS | Clinical Summary ---
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
== END 2025-05-16 13:43 | disposition home or self-care (01) ==
PROVIDERS: PCP Internal Medicine; Visit Provider Orthopaedic Surgery
DX: M16.12 Unilateral primary osteoarthritis, left hip (principal)
CPT/HCPCS: 20610; 77002; J1010

== ENCOUNTER 2025-08-22 14:00 | Outpatient (CLI) | payer OTHER, SELFPAY ==
--- NOTE | ~2025-08-22 | XR_ITS ---
EXAM/PROCEDURE: XR lg joint inject/asp w image HISTORY: left hip arthritis COMPARISON: None available. TECHNIQUE: Fluoroscopic guided left hip injection Fluoroscopy time: 0.1 minutes DAP: 0.5-6 Irving per square centimeter Number of images: 2 PROCEDURE: After informed consent and timeout performed, the left hip was prepped and draped in sterile fashion. The area was infiltrated with 1% lidocaine without epinephrine and a 3.5 22-gauge spinal needle was advanced into the hip joint. Location was confirmed and medication including 80 mg Depo-Medrol, and 2 cc of 0.5% bupivacaine injected. No immediate complication. IMPRESSION: Patient status post left hip steroid injection with no immediate complication. Reviewed, dictated and finalized at location A. MITH APPRENTICE
--- OUTSIDE RECORDS SUMMARY | 2025-08-22 14:04 | XMS_ITS | Clinical Summary ---
Author Organization [facility] [place] Address [address] [place] [id number] Care Team Providers Care Twine Reeling Machine Operator Name Role Phone Unavailable Primary Care Provider Unavailabl e Social History Tobacco Use Types Packs/Day Years Used Date Smoking Tobacco: Never Assessed Sex and Gender Information Value Date Recorded Sex Assigned at Not on file Legal Sex Male 7:53 PM TRANSISTOR TESTER Gender Identity Not on file Sexual Orientation Not on file Plan of Treatment Health Maintenance Due Date Last Done Comments PNEUMOCOCCAL VACCINE 50+ YEA RS (1 of 1 - PCV) 1995 ZOSTER VACCINE (1 of 2) 1995 RSV VACCINE (60+ or ) (1 - 1-dose 75+ series) 2020 INFLUENZA VACCINE (#1) 2025 DTAP/TDAP/TD VACCINES (3 - Td or Tdap) 06/05/2029, 07/02/2015 Insurance [employer] OA
--- OUTSIDE RECORDS SUMMARY | 2025-08-22 14:04 | XMS_ITS | Clinical Summary ---
Author Organization [facility] Address [address] [facility] [place] [address] Care Team Providers Care Churner Name Role Phone Jesus Dias MD Primary Care Provider Hailey ESTEVES MD, Cristiano Unavailable [phone] Source Comments [facility] [employer],non-owned Affiliates and Associated Physician Practices is amultiple site organization consisting of ambulatory clinics and hospital sitesin [place], [place], [place] and [place]. This disclosure is being madepursuant to the Care Everywhere program and may not contain all information available regarding this patient. Last updated 18.[facility] [employer] Allergies No known active allergies Medications * [...] fluticasone propionate (Flonase) 50 MCG/ACT nasal spray [place] 2 (two) sprays into each nostril once [...] Comments Blood Pressure 137/62 08/29/2024 11:31 AM GLUING MACHINE ADJUSTER Pulse 73 08/29/2024 11:31 AM GLUING MACHINE ADJUSTER Temperature 36.4 C (97.5 F) 08/29/2024 11:31 AM GLUING MACHINE ADJUSTER Respiratory Rate 20 08/29/2024 11:31 AM GLUING MACHINE ADJUSTER Oxygen Saturation 95% 08/29/2024 11:31 AM GLUING MACHINE ADJUSTER Inhaled Oxygen Concentration - - Weight 71.7 kg (158 lb) 10/14/2024 2:46 PM GLUING MACHINE ADJUSTER Height 180.3 cm (5' 11) 08/28/2024 12:13 PM GLUING MACHINE ADJUSTER Body Mass Index 22.04 08/28/2024 12:13 PM GLUING MACHINE ADJUSTER Plan of Treatment Health Maintenance Due Date Last Done Comments DTAP/TDAP/TD VACCINES (1 - Tdap) 1964 PNEUMOCOCCAL VACCINE 50+ (1 of 1 - PCV) 1995 ZOSTER VACCINE (1 of 2) 1995 Respiratory Syncytial Virus (RSV) Vaccine Pt: or over 60 yrs (1 - 1-dose 75+ series) 2020 DEPRESSION SCREENING 10/02/2024 COVID-19 VACCINE (2024- season) 2025 07/17/2024, 01/26/2024, 07/18/2023, Additional history [...] patient's age to complete this topic [place] [facility] Address: [facility] [id number] [place] [address] Advance Directives * Full Code (Latest Code Status on File) Date Activated Date Inactivated Comments 08/28/2024 3:19 PM 08/29/2024 4:52 PM Care Teams Churner Relationship Specialty Start Date End Date Jesus Dias MD PCP - General Internal Medicine 08/06/15 [place] [address] [address] Orthopedic Surgery 08/10/15
--- OUTSIDE RECORDS SUMMARY | 2025-08-22 14:04 | XMS_ITS | Clinical Summary ---
Author Organization [facility] Address [address] [place] [address] Care Team Providers Care Environmental Health Specialist Name Role Phone Jesus Dias MD Primary Care Provider [phone] Allergies No known active allergies Medications lisinopril-hydro [...] Diagnosed Date Peripheral vascular disease, unspecified 025 Assessment & Plan (05/28/2025 2:13 PM CDT): Falsely elevated YARIEL in the right however multiphasic waveforms suggestive of no significant stenosis. Left YARIEL barely abnormal consistent with mild occlusive disease. Overall needs no further testing or workup as he is asymptomatic. Recommend 81 mg ASA. Continue statin therapy. Can follow up me as needed. Assessment & Plan (04/17/2025 11:57 AM CDT): Considering patient's outside imaging was limited to YARIEL, will proceed with bilateral lower extremity Doppler for waveforms at the femoral, popliteal, distal levels. 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 Gender Identity Not on file Sexual Orientation Not on file Last Filed Vital Signs Vital Sign Reading Time Taken Comments Blood Pressure 134/83 05/21/2025 10:03 AM CDT Pulse 76 05/21/2025 10:03 AM CDT Temperature - - Respiratory Rate - - Oxygen Saturation 94% 05/21/2025 10:03 AM CDT Inhaled Oxygen Concentration - - Weight 74.8 kg (165 lb) 05/21/2025 10:03 AM CDT Height 170.2 cm (5' 7) 05/21/2025 10:03 AM CDT Body Mass Index 25.84 05/21/2025 10:03 AM CDT Plan of Treatment Health Maintenance Due Date Last Done Comments Depression Screening 1945 Fall Risk Assessment 1945 Hepatitis B Screening 1963 Pneumococcal vaccine 65+ (1 of 1 - PCV) 1995 Zoster Vaccine (1 of 2) 1995 Well Visit 65+ 2010 Covid-19 Vaccine (2024- season) 2025 03/24/2025, 07/17/2024, 01/26/2024, Additional history exists Influenza Vaccine (#1) 2025 , 07/18/2023, 07/26/2022, Additional history exists DTaP/Tdap/Td Vaccine (3 - Td or Tdap) 06/05/2029 06/05/2019, 07/02/2015 Insurance [facility] [id number] Care Teams Environmental Health Specialist Relationship Specialty Start Date End Date Jesus Dias MD [address] [facility] [place] [address] PCP - General 01/01/15
== END 2025-08-22 14:01 | disposition home or self-care (01) ==
PROVIDERS: PCP Internal Medicine; Visit Provider Orthopaedic Surgery
DX: M16.12 Unilateral primary osteoarthritis, left hip (principal)
CPT/HCPCS: 20610; 77002; J1010; Q9966